=== PATIENT | male | born 2000 | race Caucasian/White ===

== ENCOUNTER 2022-03-29 12:50 | Emergency (ER) | payer OTHER, SELFPAY ==
--- NOTE | ~2022-03-29 | US_ITS ---
EXAMINATION:US venous doppler LE LT INDICATION:Calf and popliteal pain TECHNIQUE: Multiple grayscale, color flow and Doppler images of the left lower extremity deep venous systems were obtained and reviewed. COMPARISON:No prior studies for comparison. FINDINGS: The common femoral, superficial femoral and popliteal veins demonstrate normal respiratory variation, augmentation and compressibility. Color flow is also seen within the posterior tibial, pe roneal, greater saphenous and profunda veins. IMPRESSION: 1: No lower extremity deep venous thrombosis. Reviewed, dictated and finalized at location A.
--- NOTE | 2022-03-29 13:04 | ED.EXTPRO ---
HPI - Extremity Problem General Chief complaint: Extremity Problem,Nontraumatic Stated complaint: sent from for DVT rull out History of Present Illness HPI Narrative: 22-year-old male presents to the emergency room for evaluation of lower extremity pain. Patient has a known history of DVT, which she completed a 6-month course of Xarelto. Patient was diagnosed with DVT in 2019. Patient states over the last week he has been experiencing swelling and pain to his left calf and behind his left knee. Denies any known injury or trauma. Patient states that he continues to take Xarelto because he was diagnosed with factor V. Patient also states that he has started a new job where he is on his feet for at least 8 hours a day. Related Data Home Medications Medication Instructions Recorded Confirmed albuterol 90 mcg/actuation aerosol mcg inhalation 03/29/22 inhaler fluticasone propionate 110 1 puff inhalation WEEKLY 03/29/22 mcg/actuation HFA aerosol inhaler (Flovent HFA) rivaroxaban 20 mg tablet (Xarelto) 20 mg PO DAILY 03/29/22 Allergies Allergy/AdvReac Type Severity Reaction Status Date / Time No Known Allergies Allergy Verified 03/29/22 13:22 Review of Systems Review of Systems: CONSTITUTIONAL: Denies fever, chills, or sweats. EYES: Denies visual changes, redness, or discharge. ENT: Denies rhinorrhea, congestion, sore throat, or otalgia. CARDIOVASCULAR: Denies chest pain, palpitations, or edema. RESPIRATORY: Denies cough or dyspnea. GASTROINTESTINAL: Denies abdominal pain, nausea, vomiting, or diarrhea. GENITOURINARY: Denies dysuria or hematuria. SKIN: Denies rash or itching. MUSCULOSKELETAL: Reports left calf pain NEUROLOGIC: Denies headache, numbness, dizziness, or weakness. PSYCHIATRIC: Denies anxiety or depression. Exam Narrative: GENERAL: Well-appearing, well-nourished, no physical limitations, and in no acute distress. HEAD: Normocephalic, atraumatic. EYES: Conjunctivae normal, PERRLA and EOMI. CHEST: Clear to auscultation. No respiratory distress. No wheezes rales or rhonchi. No tenderness. HEART: Regular rate and rhythm. No murmur heard. Normal peripheral pulses. EXTREMITIES: Normal range of motion. No edema. No clubbing or cyanosis. LLE: No appreciated of swelling to the left calf. Tenderness to the popliteal area but no palpable mass. Negative Homans' sign. Distal pulses are present. Neurovascular intact SKIN: Warm, dry, no rash. No noted wounds NEURO: No focal deficits. Alert and oriented x3. MAEW. CN's II-XI intact bilaterally, normal gait PSYCH: Cooperative. Normal mood and affect. MDM - Extremity (Nontraumatic) Imaging Data Radiologist's impression: Impressions Venous Doppler Study 03/29/22 14:00 IMPRESSION: 1: No lower extremity deep venous thrombosis. Discharge Plan Discharge Clinical Impression: Lower extremity edema, Dermatitis Patient Disposition: Home, Self-Care Condition: Stable Instructions: Antibiotic Form, Edema (ED), Dermatitis (ED) Prescriptions: New triamcinolone acetonide 0.1 % cream 1 applic topical TID Qty: 15 0RF No Action albuterol 90 mcg/actuation Aerosol INHALATION fluticasone propionate [Flovent HFA] 110 mcg/actuation Hfa Aerosol Inhaler 1 puff INHALATION WEEKLY Xarelto 20 mg Tablet 20 mg PO DAILY Rx Instructions: must administer with evening meal Follow-up/Referrals: PHYSICIAN NOT ON STAFF,NONSTAFF [Primary Care Provider] - Time of Disposition: 14:27
[2022-03-29 14:50] VITALS: BP 125/72; PULSE 88; O2SAT 98
== END 2022-03-29 14:50 | disposition home or self-care (01) ==
PROVIDERS: Emergency Provider Nurse Practitioner Family
DX: R60.0 Localized edema (principal); L30.9 Dermatitis, unspecified; D68.51 Activated protein C resistance; Z86.718 Personal history of other venous thrombosis and embolism; Z79.01 Long term (current) use of anticoagulants
CPT/HCPCS: 93971; 99284

== ENCOUNTER 2022-06-22 18:05 | Emergency (ER) | payer OTHER, SELFPAY ==
--- NOTE | ~2022-06-22 | CT_ITS ---
EXAMINATION: CTA chest PE protocol DATE: 06/22/2022 19:04 INDICATION: CHEST PAIN ON INSPIRATION, INTERMITTENT, sob TECHNIQUE: Computed tomography angiography (CTA) of the chest was performed with 100 mL Omnipaque-350 intravenous contrast timed to evaluate the pulmonary arteries. Coronal maximum intensity projection 3D-reconstructions were created by the technologist. The dose-length product (DLP) was 782.92 mGy-cm. Automated exposure control and iterative reconstruction technique were employed. COMPARISON: None. FINDINGS: Lung parenchyma and airways: Right basilar scar/atelectasis. Pleura: Unremarkable. Thoracic inlet, axillae and chest wall: Unremarkable. Thoracic aorta: Normal. Mediastinum: Normal. Heart and pericardium: Normal. Coronary artery calcifications: . Upper abdomen: No significant finding. Bones: No acute osseous finding. Pulmonary arteries: Study quality: Adequate. No pulmonary emboli detected. IMPRESSION: No CT evidence of acute pulmonary embolus. Reviewed, dictated and finalized at location K. 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
[2022-06-22 18:11] VITALS: BP 123/70; PULSE 95; RESP 18; TEMP 36.5; O2SAT 97
--- NOTE | 2022-06-22 18:18 | ECG_ITS ---
Measurements Intervals [place] Rate: 92 P: 46 TX: 158 QRS: 56 QRSD: 98 T: 53 QT: 332 QTc: 411 Interpretive Statements SINUS RHYTHM POSSIBLE LEFT ATRIAL ENLARGEMENT INCOMPLETE RIGHT BUNDLE BRANCH BLOCK BASELINE ARTIFACT- I, II, V4 BORDERLINE ECG NO PREVIOUS ECG AVAILABLE FOR COMPARISON Electronically Signed On 06-23-2022 7:44:17 GEL [employer]ATER by Adelso Alanis D.O.
[2022-06-22 18:26] VITALS: PULSE 94
[2022-06-22 18:34] LABS: Basophils Percent Auto 0.3 % (0.2-1.2); Eosinophils Absolute Auto 0.1 K/mm3 (0-0.3); Eosinophils Percent Auto 0.9 % (0-4.4); Hematocrit 46.3 % (42.0-52.0); Hemoglobin 16.5 g/dL (14.0-18.0); Immature Granulocyte Absolute 0.04 K/mm3 (0.00-0.031); Immature Granulocyte Percent A 0.4 % (0-0.5); Lymphocytes Percent Auto 12.5 % (18.3-44.2); Mean Corpuscular HGB Conc 35.6 g/dl (32-36); Mean Corpuscular Hemoglobin 32.1 pg (26-34); Mean Corpuscular Volume 90.1 fl (80-100); Mean Platelet Volume 10.1 fl (7.4-10.4); Monocytes Absolute Auto 0.4 K/mm3 (0.1-0.6); Neutrophils Absolute Auto 7.9 K/mm3 (1.3-6.7); Neutrophils Percent Auto 81.9 % (45.5-73.1); Platelet Count Result 204 k/mm3 (150-375); Red Blood Count 5.14 M/mm3 (4.6-6.20); Red Cell Distribution Width 12.2 % (11.5-14.5); White Blood Count 9.6 K/mm3 (4.5-10.0)
[2022-06-22 18:46] LABS: INR 0.9; Prothrombin Time 11.8 Seconds (11.1-14.7)
[2022-06-22 18:51] LABS: Alanine Aminotransferase 61 U/L (6-50); Albumin Level 4.4 g/dL (3.5-5.1); Alkaline Phosphatase 69 U/L (38-126); Anion Gap 6 mmol/L (8-16); Aspartate Amino Transferase 46 U/L (17-59); Bilirubin,Total 0.5 mg/dL (0.2-1.3); Blood Urea Nitrogen 12 mg/dL (9-20); Calcium 8.6 mg/dL (8.4-10.2); Carbon Dioxide 26 mmol/L (22-30); Chloride 107 mmol/L (98-107); Estimated CRCL calculation 188 ml/min; Estimated Glomerular Filt Rate > 60; Glucose 95 mg/dL (65-110); Lipase 55 U/L (23-300); Potassium 3.9 mmol/L (3.4-5.0); Sodium 139 mmol/L (137-145)
[2022-06-22 19:03] LABS: Troponin I < 0.012 ng/mL (0.000-0.034)
[2022-06-22 19:13] LABS: Influenza A QL RT-PCR Negative (Negative); Influenza B QL RT-PCR Negative (Negative); SARS-CoV-2 RNA PCR Negative
--- NOTE | 2022-06-22 19:40 | ED.CHESTPAIN ---
HPI - Chest Pain General Chief Complaint: Chest Pain Stated Complaint: left knee pain. right sided chest pain since 2019 Time Seen by Provider: 06/22/22 18:16 History of Present Illness HPI narrative: Patient is a 22-year-old male who presents ER with concerns that he may have a pulmonary embolism. He has history of factor V Leiden and he is on Xarelto. Reports he has chronic pain behind his left knee and his left lower extremity from a DVT years ago. Today started having pain in his left upper back chest and worse with deep breath. Usually can tell when he has a muscle cramp present. No hemoptysis. No cough or dyspnea. Related Data Home Medications Medication Instructions Recorded Confirmed albuterol 90 mcg/actuation aerosol mcg inhalation 03/29/22 inhaler fluticasone propionate 110 1 puff inhalation WEEKLY 03/29/22 mcg/actuation HFA aerosol inhaler (Flovent HFA) rivaroxaban 20 mg tablet (Xarelto) 20 mg PO DAILY 03/29/22 Allergies Allergy/AdvReac Type Severity Reaction Status Date / Time No Known Allergies Allergy Verified 06/22/22 18:15 Review of Systems Review of Systems: All systems reviewed & are unremarkable except as noted in HPI and below Constitutional: Constitutional: Denies chills, Denies fatigue and Denies fever(s) ENT: Denies nasal congestion and Denies sore throat Cardiovascular: Cardiovascular: Reports chest pain, Denies rapid heart rate and Denies radiating jaw, neck or arm pain Respiratory: Respiratory: Denies cough, Denies dyspnea and Denies wheezing Musculoskeletal: Musculoskeletal: Reports back pain, Denies arthralgias, Denies joint swelling and Denies muscle cramps Exam Narrative: GENERAL: Well-appearing, well-nourished, and in no acute distress. HEAD: Normocephalic, atraumatic. EYES: PERRL and EOMI. ENT: Mucous membranes moist. CHEST: Clear to auscultation. No respiratory distress. HEART: Regular rate and rhythm. Normal peripheral pulses. ABDOMEN: Soft, nontender, nondistended. EXTREMITIES: Normal range of motion. No edema. SKIN: Warm, dry, no rash. NEURO: Alert and oriented x3. Course Course Emergency Course: Patient informed of results. Resting comfortably. Discharge home. Vital Signs Vital signs: Vital Signs Temperature 97.7 F 06/22/22 18:11 Pulse Rate 95 06/22/22 18:11 Respiratory Rate 18 06/22/22 18:11 Blood Pressure 123/70 06/22/22 18:11 Pulse Oximetry 97 06/22/22 18:11 Oxygen Delivery Room Air 06/22/22 18:11 Temperature 97.7 F 06/22/22 18:11 Pulse Rate 94 06/22/22 18:26 Respiratory Rate 18 06/22/22 18:11 Blood Pressure 123/70 06/22/22 18:11 Pulse Oximetry 97 06/22/22 18:11 Oxygen Delivery Room Air 06/22/22 18:11 MDM - Chest Pain Lab Data 06/22/22 18:29 06/22/22 18:29 Labs: Lab Results 06/22/22 06/22/22 06/22/22 Range/Units 18:29 18:29 18:29 WBC 9.6 (4.5-10.0) K/mm3 RBC 5.14 (4.6-6.20) M/mm3 Hgb 16.5 (14.0-18.0) g/dL Hct 46.3 (42.0-52.0) % MCV 90.1 (80-100) fl MCH 32.1 (26-34) pg MCHC 35.6 (32-36) g/dl RDW 12.2 (11.5-14.5) % Plt Count 204 (150-375) k/mm3 MPV 10.1 (7.4-10.4) fl Immature Gran % (Auto) 0.4 (0-0.5) % Neut % (Auto) 81.9 H (45.5-73.1) % Lymph % (Auto) 12.5 L (18.3-44.2) % [place] % (Auto) 4.0 (2.6-8.5) % Eos % (Auto) 0.9 (0-4.4) % Baso % (Auto) 0.3 (0.2-1.2) % Lymph # (Auto) 1.20 (0.9-3.2) K/mm3 [place] # (Auto) 0.4 (0.1-0.6) K/mm3 Eos # (Auto) 0.1 (0-0.3) K/mm3 Baso # (Auto) 0.0 (0.0-0.1) K/mm3 Abs Immat Gran (auto) 0.04 H (0.00-0.031) K/mm3 Absolute Neuts (auto) 7.9 H (1.3-6.7) K/mm3 Absolute Nucleated RBC 0.0 (0.0-0.012) K/mm3 Nucleated RBC % 0.0 (0.0-0.2) % PT 11.8 (11.1-14.7) Seconds INR 0.9 APTT 26.0 (22.3-36.8) SECONDS Sodium 139 (137-145) mmol/L Potassium 3.9 (3.4-5.0) mmol/L Chloride 107 (98-10
[2022-06-22 20:02] VITALS: BP 124/72; PULSE 69; RESP 16; TEMP 36.7; O2SAT 98
== END 2022-06-22 20:04 | disposition home or self-care (01) ==
PROVIDERS: Emergency Provider Emergency Medicine
DX: R07.89 Other chest pain (principal); Z20.822 Contact with and (suspected) exposure to COVID-19
CPT/HCPCS: 36415; 71275; 80053; 83690; 84484; 85025; 85610; 85730; 87636; 93005; 99284; Q9967

== ENCOUNTER 2023-05-01 18:27 | Emergency (ER) | payer OTHER, SELFPAY ==
--- NOTE | ~2023-05-01 | CT_ITS ---
EXAMINATION: CT abdomen pelvis wo con DATE: 05/01/2023 21:11 INDICATION: Right lower quadrant abdominal pain. Right flank pain. TECHNIQUE: Computed tomography (CT) of the abdomen and pelvis was performed without intravenous contr ast. Automated exposure control and iterative reconstruction technique were employed. The dose-length product was 1769.96 mGy-cm. COMPARISON: None. FINDINGS: The visualized portions of the lung bases are clear without pneumonia or pleural effusion. The heart size is normal. No pericardial effusion. There is diffuse hepatic steatosis. The gallbladde r, spleen, pancreas, adrenal glands, and kidneys are normal. There is no urolithiasis. There is fat s tranding around an epiploic appendage of sigmoid colon in the right lower quadrant, consistent with e piploic appendagitis. The appendix is normal. There are no dilated loops of bowel. There are no patho logically enlarged lymph nodes. There is no free intraperitoneal fluid. The bones are unremarkable. IMPRESSION: 1. Epiploic appendagitis of sigmoid colon in the right lower quadrant. Reviewed, dictated and finalized at location E. [employer]IATE
[2023-05-01 18:39] VITALS: BP 134/81; PULSE 97; RESP 18; TEMP 36.3; O2SAT 99
[2023-05-01 19:02] LABS: Basophils Percent Auto 0.2 % (0.2-1.2); Eosinophils Absolute Auto 0.2 K/mm3 (0-0.3); Eosinophils Percent Auto 2.1 % (0-4.4); Hematocrit 47.8 % (42.0-52.0); Hemoglobin 16.3 g/dL (14.0-18.0); Immature Granulocyte Absolute 0.04 K/mm3 (0.00-0.031); Immature Granulocyte Percent A 0.4 % (0-0.5); Lymphocytes Absolute Auto 2.64 K/mm3 (0.9-3.2); Lymphocytes Percent Auto 29.4 % (18.3-44.2); Mean Corpuscular HGB Conc 34.1 g/dl (32-36); Mean Corpuscular Hemoglobin 30.9 pg (26-34); Mean Corpuscular Volume 90.7 fl (80-100); Monocytes Percent Auto 11.5 % (2.6-8.5); Neutrophils Absolute Auto 5.1 K/mm3 (1.3-6.7); Neutrophils Percent Auto 56.4 % (45.5-73.1); Platelet Count Result 237 k/mm3 (150-375); Red Blood Count 5.27 M/mm3 (4.6-6.20); Red Cell Distribution Width 12.5 % (11.5-14.5)
[2023-05-01 19:02] LABS: Appearance Urine Clear (Clear); Bilirubin Urine Negative (Negative); Blood Urine Negative (Negative); Color Urine Yellow (Yellow); Glucose Urine UA Negative (Negative); Ketones Urine Negative (Negative); Leukocyte Esterase Ur Negative LEU/UL (Negative); Nitrate Urine Negative (Negative); Protein Urine Negative (Negative); Specific Grav Ur 1.018 (1.001-1.035); Urobilinogen Urine 0.2 mg/dL (<2.0)
[2023-05-01 19:03] LABS: Alanine Aminotransferase 44 U/L (6-50); Albumin Level 4.5 g/dL (3.5-5.1); Alkaline Phosphatase 70 U/L (38-126); Anion Gap 6 mmol/L (8-16); Aspartate Amino Transferase 29 U/L (17-59); Bilirubin,Total 0.5 mg/dL (0.2-1.3); Blood Urea Nitrogen 14 mg/dL (9-20); Calcium 9.3 mg/dL (8.4-10.2); Carbon Dioxide 30 mmol/L (22-30); Chloride 103 mmol/L (98-107); Estimated CRCL calculation 141 ml/min; Estimated Glomerular Filt Rate > 60; Glucose 97 mg/dL (65-110); Lipase 55 U/L (23-300); Sodium 139 mmol/L (137-145)
[2023-05-01 19:28] LABS: Add Urine Microscopic? NO
--- NOTE | 2023-05-01 20:56 | ED.GENADULT ---
HPI - General Adult General Chief complaint: Unspecified Stated complaint: groin pain Time Seen by Provider: 05/01/23 20:38 History of Present Illness HPI narrative: Patient is a 23-year-old gentleman who presents the emergency department with chief complaint of left lower quadrant pain. The patient reports that around midnight he started having pain in the right lower quadrant right inguinal area. Patient reports the pain is sharp reports it is worse with movement and improved with rest. Patient denies nausea vomiting denies fever denies diarrhea. Related Data Home Medications Medication Instructions Recorded Confirmed albuterol 90 mcg/actuation aerosol mcg inhalation 03/29/22 inhaler fluticasone propionate 110 1 puff inhalation WEEKLY 03/29/22 mcg/actuation HFA aerosol inhaler (Flovent HFA) rivaroxaban 20 mg tablet (Xarelto) 20 mg PO DAILY 03/29/22 Allergies Allergy/AdvReac Type Severity Reaction Status Date / Time No Known Allergies Allergy Verified 06/22/22 18:15 Review of Systems Review of Systems: A 10 system review of systems was completed on the patient and is negative except for what is stated in the HPI. Nursing and ancillary documentation was reviewed. Exam Narrative: GENERAL: Well-appearing, well-nourished, and in no acute distress. HEAD: Normocephalic, atraumatic. EYES: PERRLA and EOMI. ENT: Nares clear, no rhinorrhea or epistaxis. Mucous membranes moist. NECK: Supple. CHEST: Clear to auscultation. No respiratory distress. HEART: Regular rate and rhythm. No murmur heard. Normal peripheral pulses. ABDOMEN: Soft, tenderness to palpation in the right lower quadrant and right upper quadrant, nondistended, normal active bowel sounds. EXTREMITIES: Normal range of motion. No edema. SKIN: Warm, dry, no rash. NEURO: No focal deficits. Alert and oriented x3. PSYCH: Normal mood and affect. Course Vital Signs Vital signs: Vital Signs Temperature 36.3 C L 05/01/23 18:39 Pulse Rate 97 05/01/23 18:39 Respiratory Rate 18 05/01/23 18:39 Blood Pressure 134/81 05/01/23 18:39 Pulse Oximetry 99 05/01/23 18:39 Oxygen Delivery Room Air 05/01/23 18:39 Temperature 36.3 C L 05/01/23 18:39 Pulse Rate 97 05/01/23 18:39 Respiratory Rate 18 05/01/23 18:39 Blood Pressure 134/81 05/01/23 18:39 Pulse Oximetry 99 05/01/23 18:39 Oxygen Delivery Room Air 05/01/23 18:39 Medical Decision Making MDM Narrative Medical decision making narrative: Differential diagnosis includes ureterolithiasis, UTI, appendicitis, epiploic appendagitis, diverticulitis colitis Laboratory studies were obtained on the patient which showed normal CBC normal CMP normal lipase urinalysis showed no evidence of UTI or RBCs CT scan of the abdomen pelvis showed Epiploic appendagitis of sigmoid colon in the right lower quadrant. Vital Signs Vital Signs: Vital Signs Temperature 36.3 C L 05/01/23 18:39 Pulse Rate 97 05/01/23 18:39 Respiratory Rate 18 05/01/23 18:39 Blood Pressure 134/81 05/01/23 18:39 Pulse Oximetry 99 05/01/23 18:39 Oxygen Delivery Room Air 05/01/23 18:39 Temperature 36.3 C L 05/01/23 18:39 Pulse Rate 97 05/01/23 18:39 Respiratory Rate 18 05/01/23 18:39 Blood Pressure 134/81 05/01/23 18:39 Pulse Oximetry 99 05/01/23 18:39 Oxygen Delivery Room Air 05/01/23 18:39 Lab Data 05/01/23 18:45 05/01/23 18:45 Labs: Lab Results 05/01/23 05/01/23 Range/Units 18:45 18:53 WBC 9.0 (4.5-10.0) K/mm3 RBC 5.27 (4.6-6.20) M/mm3 Hgb 16.3 (14.0-18.0) g/dL Hct 47.8 (42.0-52.0) % MCV 90.7 (80-100) fl MCH 30.9 (26-34) pg MCHC 34.1 (32-36) g/dl RDW 12.5 (11.5-14.5) % Plt Count 237 (150-375) k/mm3 MPV 10.0 (7.4-10.4) fl Immature Gran % (Auto) 0.4 (0-0.5) % Neut % (Auto) 56.4 (45.5-73.1) % Lymph % (Auto) 29.4 (18.3-44.2) % [place] % (Auto) 1
== END 2023-05-01 21:57 | disposition home or self-care (01) ==
PROVIDERS: Emergency Medicine; Emergency Provider Emergency Medicine; PCP Nurse Practitioner Family
DX: K63.89 Other specified diseases of intestine (principal)
CPT/HCPCS: 36415; 74176; 80053; 81003; 83690; 85025; 99284

== ENCOUNTER 2024-03-28 17:17 | Emergency (ER) | payer OTHER, SELFPAY ==
--- NOTE | ~2024-03-28 | XR_ITS ---
EXAM: XR foot RT min 3V DATE: 03/28/2024 20:03 HISTORY: great toe laceration . COMPARISON: None available. FINDINGS: Normal mineralization. No fracture or dislocation. No lytic or blastic lesion. Joint space s are maintained. No erosion or periosteal change. Soft tissues within normal limits. IMPRESSION: No acute osseous finding in the right foot. Reviewed, dictated and finalized at location K.
[2024-03-28 17:30] VITALS: BP 110/63; PULSE 92; RESP 17; TEMP 36.6; O2SAT 98
--- NOTE | 2024-03-28 20:40 | ED.LOWEXIN ---
HPI - Extremity Injury (Lower) General Chief Complaint: Extremity Injury, Lower Stated Complaint: right foot injury Time Seen by Provider: 03/28/24 19:32 History of Present Illness HPI Narrative: 24-year-old male presents emergency department for a superficial laceration to his right great toe. Patient states earlier today he was walking up stairs with [employer] when he slipped and cut his great toe on the stair. He denies hitting his head, LOC or other injuries acquired. His last tetanus was in 2020. Bleeding is controlled. He is anticoagulated on Xarelto for prior VTE. Related Data Home Medications Medication Instructions Recorded Confirmed albuterol 90 mcg/actuation aerosol mcg inhalation 03/29/22 inhaler fluticasone propionate 110 1 puff inhalation WEEKLY 03/29/22 mcg/actuation HFA aerosol inhaler (Flovent HFA) rivaroxaban 20 mg tablet (Xarelto) 20 mg PO DAILY 03/29/22 Allergies Allergy/AdvReac Type Severity Reaction Status Date / Time No Known Allergies Allergy Verified 03/28/24 17:18 Review of Systems Review of Systems: All systems reviewed & are unremarkable except as noted in HPI and below Exam Narrative: GENERAL: Well-appearing, well-nourished, and in no acute distress. HEAD: Normocephalic, atraumatic. ENT: Nares clear, no rhinorrhea or epistaxis. Mucous membranes moist. NECK: Supple. CHEST: Clear to auscultation. No respiratory distress. HEART: Regular rate and rhythm. No murmur heard. Normal peripheral pulses. ABDOMEN: Soft, nontender, nondistended, normal active bowel sounds. EXTREMITIES: Normal range of motion. No edema. SKIN: Approximately 1.5 cm curvilinear superficial laceration With flap to the palmar aspect of the right great toe, bleeding is controlled. no deep structures or foreign bodies visualized. Laceration involves only the epidermis, dermal layer intact. Patient able to wiggle toe without difficulty. Cap refill less than 2. No bony tenderness. NEURO: No focal deficits. Alert and oriented x3 Course Vital Signs Vital signs: Vital Signs Temperature 97.9 F 03/28/24 17:30 Pulse Rate 92 03/28/24 17:30 Respiratory Rate 17 03/28/24 17:30 Blood Pressure 110/63 03/28/24 17:30 Pulse Oximetry 98 03/28/24 17:30 Temperature 97.9 F 03/28/24 17:30 Pulse Rate 92 03/28/24 17:30 Respiratory Rate 17 03/28/24 17:30 Blood Pressure 110/63 03/28/24 17:30 Pulse Oximetry 98 03/28/24 17:30 MDM - Extremity Injury (Lower) MDM Narrative Medical decision making narrative: 24-year-old male presents to the emergency department for a laceration to the palmar aspect of his right great toe that occurred today. See HPI for further history. Vitals are stable. Exam is significant for a 1.5 cm curvilinear laceration that involves only the epidermal layer. Bleeding is controlled. There are no deep structures or foreign bodies visualized. The urea was irrigated extensively with normal saline. Shared decision making regarding closure. Patient feels comfortable with wrapping the area given it is so superficial. Antibiotic ointment and dressing applied. I discussed dressing changes and wound care as well as close PCP follow-up. He has an appointment with his PCP this week which I encouraged him to attend. Strict ED return precautions discussed. He is agreeable to plan verbalized understanding. Discharged in stable condition. Discharge Plan Discharge Clinical Impression: Laceration Patient Disposition: Home, Self-Care Condition: Stable Instructions: Antibiotic Form, Laceration (DC) Additional Instructions: You were seen in the emergency department for laceration to her toe. Her x-rays unremarkable. We discussed closing the area was stitches or leaving it to close with a bandage. You agree to leave a closed with a bandage. Please change the dressing twice a day. change earlier if it becomes saturated. Return to the emergency depa
== END 2024-03-28 20:57 | disposition home or self-care (01) ==
PROVIDERS: Emergency Provider Physician Assistant; PCP Nurse Practitioner Family
DX: S91.111A Laceration without foreign body of right great toe without damage to nail, initial encounter (principal); Z86.718 Personal history of other venous thrombosis and embolism; Z79.01 Long term (current) use of anticoagulants; W10.9XXA Fall (on) (from) unspecified stairs and steps, initial encounter
CPT/HCPCS: 73630; 99283

== ENCOUNTER 2024-11-05 23:03 | Emergency (ER) | payer OTHER, SELFPAY ==
--- OUTSIDE RECORDS SUMMARY | 2024-11-05 23:05 | XMS_ITS | Encounter Summary ---
Author Organization [facility] Healthcare Address [address] [place] [address] Care Team Providers Care Putaway Driver Name Role Phone Natasha Shanks NP Primary Care Provider [phone] Emily Valdez MD Unavailable Encounter Details Date Type Department Care Team (Late st Contact Info) Description 10/19/2024 Results Follow-Up [facility] Medical [facility] at [address] [id number] Karie Clemons NP [address] [facility] [address] [place] [address] Social History Tobacco Use Types Packs/Day Years Used Date Smoking Tobacco: Never Smokeless Tobacco: Never PHQ-2 Answer Date Recorded PHQ-2 Total Score (If total score is 3 or more points, staff should administer the PHQ-9) 0 10/04/2024 PHQ-9 Answer Date Recorded PHQ-9 Total Score 10 09/29/2023 Sex and Gender Information Value Date Recorded Sex Assigned at Not on file Legal Sex Male 10:55 AM CDT Gender Identity Male 01/29/2023 12:40 PM CDT Sexual Orientation Straight 01/29/2023 12 :40 PM CDT documented as of this encounter Plan of Treatment Not on file documented as of this encounter Visit Diagnoses Not on filedocumented in this encounter Care Teams Putaway Driver Relationship Specialty Start Date End Date Natasha Shanks NP [address] [facility] [address] [place] [address] PCP - General Family Medicine 10/17/22 Emily Valdez MD [address] [place] [id number] Referring Physician Internal Medicine 03/13/23 documented as of this encounter
--- OUTSIDE RECORDS SUMMARY | 2024-11-05 23:05 | XMS_ITS | Encounter Summary ---
Author Organization [facility] Healthcare Address [address] [place] [address] Care Team Providers Care Pulp Grinder Feeder Name Role Phone Natasha Shanks NP Primary Care Provider [phone] Emily Valdez MD Unavailable Encounter Details Date Type Department Care Team (Late st Contact Info) Description 10/11/2024 Results Follow-Up [facility] Medical Group Primary Care at [address] [id number] Natasha Shanks NP [address] [facility] [address] [place] [address] Social History Tobacco Use Types [...] on filedocumented in this encounter Care Teams Pulp Grinder Feeder Relationship Specialty Start Date End Date Natasha Shanks NP [address] [place] [address] [address] [place] [address] PCP - General Family Medicine 10/17/22 Emily Valdez MD [address] [place] [id number] [id number] Referring Physician Internal Medicine 03/13/23 documented as of this encounter
--- OUTSIDE RECORDS SUMMARY | 2024-11-05 23:05 | XMS_ITS | Referral Summary ---
Author Organization [facility] [address] Address [address] [place] [phone] Care Team Providers Care Radiology Equipment Servicer Name Role Phone Natasha Shanks NP Primary Care Provider [phone] Emily Valdez MD Unavailable Encounters Date Type Department Care Team Description 11/04/2024 2:01 PM CDT - 11/04/2024 11:59 PM CDT Hospital Encounter [facility] [address] [place] [address] Flank pain; RUQ pain Discharge Disposition: Discharge to home or self care 11/03/[address] [address] Kushal Blas 10/19/2024 Results Follow-Up [facility] Convenient Care at [address] [phone] Karie Clemons NP 10/19/2024 2:35 PM CDT Ancillary Procedure [facility] Imaging at [address] [phone] Acute pain of right knee 10/19/2024 2:15 PM CDT Office Visit [facility] at [address] [phone] Karie Clemons NP Acute pain of right knee (Primary Dx); Nausea; Functional diarrhea 10/11/2024 Results Follow-Up [facility] Primary Care at [address] [phone] Natasha Shanks NP 10/08/2024 4:16 PM CDT - 10/08/2024 11:59 PM CDT Hospital Encounter [address] [address] Vitamin D deficiency Discharge Disposition: Discharge to home or self care 10/08/2024 11:15 AM CDT Lab [facility] Out[facility] Lab at [address] [phone] Allergic rhinitis (Primary Dx) 10/04/2024 2:00 PM CDT Office Visit [facility] Primary Care at [address] [phone] Natasha Shanks NP Flank pain (Primary Dx); RUQ pain 09/29/2024 5:15 PM CDT Office Visit [facility] Con[facility]ient Care at [address] [phone] Enriqueta Avina PA Flank pain (Primary Dx) 09/22/2024 Orders Only [facility] Primary Care at [address] [phone] Natasha Shanks NP Vitamin D deficiency (Primary Dx) 08/31/2024 Telephone [facility] Primary Care at [address] [phone] Natasha Shanks NP Test Results 08/27/2024 Results Follow-Up [facility] Primary Care at [address] [phone] Natasha Shanks NP 08/24/2024 7:46 AM TILE POWER SHEAR OPERATOR - 08/24/2024 11:59 PM TILE POWER SHEAR OPERATOR Hospital Encounter [facility] [address] [place] [address] RUQ pain Discharge Disposition: Discharge to home or self care from Last 3 Months Allergies No known active allergies Medications pyrithione zinc 2 % shampooIndication s:Tinea versicolor Applied to affected areas of dance skin, lather, leave on 5 minutes, and rinse repeat once daily for 2 weeks 240 mL 023 Active clotrimazole-beta methasone (LOTRISONE) cream 0 Refill(s), Maintenance 022 Active fluticasone propionate (FLOVENT HFA) 110 mcg/actuation inhaler Inhale 2 puffs 2 (two) times a day 1 each 3 023 Active albuterol HFA (PROVENTIL HFA,VENTOLIN HFA,PROAIR HFA) 90 mcg/actuation inhaler Inhale 2 puffs every 4 (four) hours as needed for wheezing or shortness of breath 1 each 1 023 Active mupirocin (BACTROBAN) 2 % ointment Apply topically 3 (three) times a day 22 g 024 Active Additional Information Patient not taking.Reported on 10/19/2024 rivaroxaban (XARELTO) 20 mg tablet Take 1 tablet (20 mg total) by mouth daily 90 tablet 1 024 Active ergocalciferol (VITAMIN D) 50,000 unit capsule Take 1 capsule (50,000 Units total) by mouth once a week 12 capsule 024 Active tirzepatide, weight loss, (ZEPBOUND) 7.5 mg/0.5 mL pen injectorIndicatio ns:Weight Loss Management for Obese Patient (BMI >= 30) Inject 0.5 mL (7.5 mg total) under the skin every 7 days 2 mL 3 025 Active methylPREDNISolon e (MEDROL DOSEPACK) 4 mg DosepackIndicatio ns:Right-sided low back pain without sciatica, unspecified chronicity Take 6 tabs on day 1, reduce dose by 1 daily until prescription is complete. 1 packet 025 Active Additional Information Patient not taking.Reported on 10/19/2024 cyclobenzaprine (FLEXERIL) 5 mg tablet TAKE 1 TABLET BY MOUTH NIGHTLY NEEDED FOR MUSCLE SPASMS 30 tablet 1 025 Active lidocaine (LIDODERM) 5 % Place 1 patch on the skin daily for 12 hours Remove & discard patch within 12 hours or as directed by MD. 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 Encouragement given. Order placed for nutrition as patient interested in learning new ways to adjust his diet in his living situation. Assessment & Plan (01/19/2024 9:08 AM CDT): Pt tolerating Zepbound 2.5mg. Will increase to 5mg. Has lost nearly 30 pounds and feels much better (better sleep, energy, etc.). Currently doing a lifestyle management program and low carb diet as well. Assessment & Plan (09/29/2023 9:38 AM CDT): Healthy, low carbohydrate lifestyle and exercise for 150min/week recommended Factor 5 Leiden mutation, heterozygous 9 10/17/2022 Overview (10/17/2022): Last Assessment & Plan: Following with hematology. Doing well. Assessment & Plan (01/19/2024 9:08 AM CDT): Continues on Xarelto. Sees hematology. Assessment & Plan (09/29/2023 9:36 AM CDT): Continuing Xarelto 20 mg daily. Has established with Dr Velez. Assessment & Plan (04/25/2023 10:31 AM CDT): Patient in need of milliner helper who is closer in proximity. Referral to Dr Agustin rose, continuing Xarelto, refill provided. Assessment & Plan (10/17/2022 3:37 PM CDT): Hx of DVT left leg (2019) behind the knee. Feels like it has been more swollen in the last few weeks. Intermittent pain if he is kneeling down. Denies any other red flag sx, exam unremarkable. Continues Xarelto Will get updated labs, see if we need Hematology again. Allergic rhinitis 03/24/2012 10/17/2022 Asthma 10/29/2011 10/17/2022 Assessment & Plan (09/29/2023 9:37 AM CDT): Asthma sx stable overall. Assessment & Plan (2023 2:06 PM CDT): 5 day oral steroid for exacerbation, likely r/t returning to school and around cats. Continuing daily Flovent and prn Albuterol. Assessment & Plan (10/17/2022 3:38 PM CDT): Stable, uses prn inhaler approximately 2x/month. Continues Flovent. Decreased visual acuity 10/29/2011 10/18/19 23 Immunizations Immunization Administration Dates Next Due DTaP 09/30/2005, 2,2000,07/18,2000 HPV9 09/09/2023,08/03/2019,05/26/2019 Hep A, Pediatric 11/30/2012,10/29/2011 Hep B / HiB 2000,2000 Hep B, Adolescent or Pediatric 2000 Heplisav-b (Hepatitis B) 02/13/2024,06/05/2023 Hib (PRP-T) 07/06/2001,2000 IPV 09/30/2005, 1,2000,05/19 Influenza, Quadrivalent, Lola l Culture-based MDCK, Preservative Free, Antibiotic Free, Intramuscular 06/05/2023 Influenza, Quadrivalent, Spl it, Preservative Free, Intramuscular 2023,05/01/2020,05/26/2019,05/11 Influenza, Trivalent, Cell Culture-based MDCK, Preservative Free, Antibiotic Free, Intramuscular 02/13/2024,06/05/2023 Influenza, Trivalent, Preser vative Free, Intramuscular 04/28/2010,05/15/2005 Influenza, Unspecified 06/23/2023(Deferr ed: Patient Refused),2023(Deferred: Patient Refused),06/23/2022(Deferred: Patient Refused),06/23/2022(Deferred: Patient Refused) MMR 09/30/2005,03/23/2001 Meningococcal B, OMV (Bexsero) 2023 Meningococcal Conjugate (Menveo) 12/12/2017 Meningococcal MCV4P (Menactra) 10/29/2011 Pneumococcal Conjugate 15-valent 09/09/2023 Pneumococcal Conjugate 7-Valent 07/06/2001,03/23 Pneumococcal Polysaccharide PPV23 05/26/2019 Tdap 06/04/2022,10/29/2011 Varicella 10/29/2011,03/23/2001 Social History Tobacco Use Types Packs/Day Years Used Date Smoking Tobacco: Never Smokeless Tobacco: Never Tobacco Cessation:Counseling Given: Not Answered PHQ-2 Answer Date Recorded PHQ-2 Total Score [...] Orientation Straight 01/29/2023 12 :40 PM CDT Last Filed Vital Signs Vital Sign Reading Time Taken Comments Blood Pressure 103/67 10/19/2024 2:24 PM CDT Pulse 87 10/19/2024 2:24 PM CDT Temperature 36.7 C (98.1 F) 10/19/2024 2:24 PM CDT Respiratory Rate 18 10/19/2024 2:24 PM CDT Oxygen Saturation 97% 10/19/2024 2:24 PM CDT Inhaled Oxygen Concentration - - Weight 106.8 kg (235 lb 8 oz) 10/19/2024 2:24 PM CDT Height 180.3 cm (5' 10.98 ) 10/19/2024 2:24 PM C DT Body Mass Index 32.86 10/19/2024 2:24 PM CDT Plan of Treatment Not on file Procedures Procedure Name Priority Date/Time Associated Diagnosis Comments XR KNEE RIGHT 3 VIEWS Schedule RAVEN, Read RAVEN (Appt Today, Awaiting Results) 10/19/2024 2:40 PM CDT Acute pain of right knee VITAMIN D 25 HYDROXY Routine 10/08/2024 2:31 PM CDT Vitamin D deficiency POCT URINALYSIS DIPSTICK Routine 09/29/2024 5:29 PM CDT Flank pain US RUQ Schedule Routine, Read Routine (OP Routine) 08/24/2024 8:15 AM TILE POWER SHEAR OPERATOR RUQ pain HEPATITIS C ANTIBODY Routine 09/30/2023 11:54 AM CDT Encounter for hepatitis C screening test for low risk patient from Last 3 Months or Most Recently Relevant to Health Maintenance Results * XR Knee Right 3 Vw (10/19/2024 2:40 PM CDT) Anatomical Region Laterality Modality Lower Extremities, Knee Right Digital Radiography 10/19/2024 4:03 PM CDT Narrative 10/19/2024 4:04 PM CDT EXAM DESCRIPTION: XR KNEE RIGHT 3 VIEWS REASON FOR STUDY: pain Pt complains of right knee pain for two days. No known injury. No prior surgery to the knee. TECHNIQUE: 3 radiographic view(s) of the right knee . COMPARISON: None FINDINGS: BONES/JOINTS: There is no acute fracture, malalignment or osseous abnormality. The joint spaces are normal. SOFT TISSUES: Within normal limits. IMPRESSION: No acute osseous abnormality. THIS IS AN ELECTRONICALLY VERIFIED FINAL REPORT 10/19/2024 4:04 PM - Electronically signed by Demetria Tio Kinsey M.D. FT T: Report ID: [id number] Reading Location: [id number] Procedure Note Demetria Hurtado MD - 10/19/2024 EXAM DESCRIPTION: XR KNEE RIGHT 3 VIEWS REASON FOR STUDY: pain Pt complains of right knee pain for two days. No known injury. No prior surgery to the knee. TECHNIQUE: 3 radiographic view(s) of the right knee . COMPARISON: None FINDINGS: BONES/JOINTS: There is no acute fracture, malalignment orosseous abnormality. The joint spaces are normal. SOFT TISSUES: Within normal limits. IMPRESSION: No acute osseous abnormality. THIS IS AN ELECTRONICALLY VERIFIED FINAL REPORT 10/19/2024 4:04 PM - Electronically signed by Demetria Kinsey M.D. FT T: Report ID: [id number] Reading Location: [place] [address] Karie Clemons ADVERTISING SALES EXECUTIVE IMG XR PROCEDURES Final Result * Vitamin D 25 hydroxy (10/08/2024 2:31 PM CDT) Pathologist [facility] [place] Vitamin D 25-OH 35 30 - 80 ng/mL Blood 10/08/2024 2:31 PM CDT 10/08/2024 3:54 PM CDT Natasha Shanks NP LAB BLOOD ORDERABLES Final Resul t [facility] [id number] Department of Laboratories [place], [place] [id number] * POCT urinalysis dipstick (09/29/2024 5:29 PM CDT) Pathologist [facility] [place] Color, Urine, POC Yellow Clarity, ur, POC Clear Clear Glucose, ur, POC Negative Negative MG/DL Bilirubin, ur, POC Negative Negative, Small, Moderate, Large Ketones, ur, POC Negative Negative Specific [place], POC 1.030 1.003 - 1.030 Blood, ur, POC Negative Negative pH, ur, POC 6.0 5.0 - 8.0 Protein, ur, POC Negative Negative Urobilinogen, urine, POC 0.2 0.2 - 1.0 mg/dL Nitrite, ur, POC Negative Negative Leukocytes, ur, POC Negative Negative Lot Number [id number] Urine 09/29/2024 5:29 PM CDT us Enriqueta WADSWORTH POINT OF CARE TEST ORDER GINA Final Result * US RUQ (08/24/2024 8:15 AM TILE POWER SHEAR OPERATOR) Anatomical Region Laterality Modality Abdomen N/A Ultrasound 08/26/2024 7:09 PM TILE POWER SHEAR OPERATOR Narrative 08/26/2024 7:10 PM TILE POWER SHEAR OPERATOR EXAM DESCRIPTION: US RUQ REASON FOR STUDY: RUQ pain TECHNIQUE: Ultrasound of the right upper quadrant of the abdomen was performed with grayscale and color doppler. COMPARISON: None FINDINGS: PANCREAS: Visualized portions of the pancreas are within normal limits. Portions of the pancreatic body and tail are obscured due to bowel gas. LIVER: The liver appears normal in echotexture and echogenicity. No focal lesion identified. The main portal vein is patent with antegrade flow. GALLBLADDER: The gallbladder appears unremarkable. No cholelithiasis. No gallbladder wall thickening or pericholecystic fluid. No positive sonographic Custer sign reported. BILIARY: There is no intrahepatic or extrahepatic biliary ductal dilatation. Common bile duct measures 3 mm in diameter. RIGHT KIDNEY: Normal size. Normal echogenicity. No solid mass or cyst. No hydronephrosis. Measures 11.5 cm in length. OTHER: No other significant findings. IMPRESSION: No acute abnormality. THIS IS AN ELECTRONICALLY VERIFIED FINAL REPORT 08/26/2024 7:10 PM - Electronically signed by Reynaldo Camejo M.D. BS: GIGI Report ID: [id number] Reading Location: [place] [address] Procedure Note Reynaldo Camejo MD - 08/26/2024 EXAM DESCRIPTION: US RUQ REASON FOR STUDY: RUQ pain TECHNIQUE: Ultrasound of the right upper quadrant of the abdomen wasperformed with grayscale and color doppler. COMPARISON: None FINDINGS: PANCREAS: Visualized portions of the pancreas are within normal limits. Portions of the pancreatic body and tail are obscured due to bowel gas. LIVER: The liver appears normal in echotexture and echogenicity. Nofocal lesion identified. The main portal vein is patent with antegrade flow. GALLBLADDER: The gallbladder appears unremarkable. No cholelithiasis.No gallbladder wall thickening or pericholecystic fluid. No positivesonographic Custer sign reported. BILIARY: There is no intrahepatic or extrahepatic biliary ductaldilatation. Common bile duct measures 3 mm in diameter. RIGHT KIDNEY: Normal size. Normal echogenicity. No solid mass or cyst.No hydronephrosis. Measures 11.5 cm in length. OTHER: No other significant findings. IMPRESSION: No acute abnormality. THIS IS AN ELECTRONICALLY VERIFIED FINAL REPORT 08/26/2024 7:10 PM - Electronically signed by Reynaldo Camejo M.D. BS: BS Report ID: [id number] Reading Location: [place] [address] us Natasha Shanks NP IMG US PROCEDURES Final Result * Hepatitis C antibody Blood (09/30/2023 11:54 AM CDT) Hep C Ab Nonreactive Nonreactive Comment: Interpretive Data Nonreactive: Antibodies to HCV not detected. Does NOT exclude the possibility of recent exposure to HCV. Equivocal: Equivocal for HCV antibodies. Supplemental molecular testing will be automatically performed to determine infection status in accordance with current CDC screening recommendations. Reactive: Positive for HCV antibodies. This may represent current or past HCV infection. Supplemental molecular testing will be automatically performed to determine current infection status in accordance with current CDC screening recommendations. Interpretive data was last revised on 2019. Blood 09/30/2023 11:5 4 AM CDT 09/30/2023 6:52 PM CDT us Natasha Shanks NP LAB MICROBIOLOGY - GENERAL [place] [id number] [address] Department [place] [address] from Last 3 Months or Most Recently Relevant to Health Maintenance Insurance [employer] Care Teams Radiology Equipment Servicer Relationship Specialty Start Date End Date Natasha Shanks NP [address] [facility] [address] [place] [address] PCP - General Family Medicine 10/17/22 Emily Valdez MD [address] [place] [address] Referring Physician Internal Medicine 03/13/23
--- OUTSIDE RECORDS SUMMARY | 2024-11-05 23:05 | XMS_ITS | Clinical Summary ---
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 Referral to Dr Velez placed, continuing Xarelto, refill provided. Assessment & Plan [...] Flovent. Decreased visual acuity 10/29/2011 10/18/19 23 Encounters Date Type Department Care Team Description 11/04/2024 2:01 PM CDT - 11/04/2024 11:59 PM CDT Hospital Encounter [facility] [address] [place] [address] Flank pain; RUQ pain Discharge Disposition: Discharge to home or self care 11/03/2024 Telephone [facility] [address] [place] [address] Kushal Blas 10/19/2024 2:35 PM CDT Ancillary Procedure [facility] Imaging at [address] [phone] Acute pain of right knee 10/19/2024 2:15 PM CDT Office Visit [facility] Convenient Care at [address] [phone] Karie Clemons NP Acute pain of right knee (Primary Dx); Nausea; Functional diarrhea 10/19/2024 Results Follow-Up [facility] Con[facility]ient Care at [address] [phone] Karie Clemons NP 10/11/2024 Results Follow-Up [facility] Primary Care at [address] [phone] Natasha Shanks NP 10/08/2024 4:16 PM CDT - 10/08/2024 11:59 PM CDT Hospital Encounter [address] [address] Vitamin D deficiency Discharge Disposition: Discharge to home or self care 10/08/2024 11:15 AM CDT [facility] at [address] [phone] Allergic rhinitis (Primary Dx) 10/04/2024 2:00 PM CDT Office Visit [facility] Primary Care at [address] [phone] Natasha Shanks NP Flank pain (Primary Dx); RUQ pain 09/29/2024 5:15 PM CDT Office Visit [facility] Convenient Care at [address] [phone] Enriqueta Avina PA Flank pain (Primary Dx) 09/22/2024 Orders Only [facility] Primary Care at [address] [phone] Natasha Shanks NP Vitamin D deficiency (Primary Dx) 08/31/2024 Telephone [facility] Primary Care at [address] [phone] Natasha Shanks NP Test Results 08/27/2024 Results Follow-Up [facility] Primary Care at [address] [phone] Natasha Shanks NP 08/24/2024 7:46 AM TRACTOR CRANE OPERATOR - 08/24/2024 11:59 PM TRACTOR CRANE OPERATOR Hospital Encounter [facility] [address] [place] [address] RUQ pain Discharge Disposition: Discharge to home or self care from Last 3 Months Immunizations Immunization Administration Dates Next Due DTaP [...] Polysaccharide PPV23 05/26/2019 Tdap 06/04/2022,10/29/2011 Varicella 10/29/2011,03/23/2001 Surgical History Surgery Date Site/Laterality Comments MANDIBLE SURGERY 06/23/2020 - 06/22/2021 COSMETIC SURGERY 12/05/2020 Medical History Medical History Date Comments DVT (deep venous thrombosis) (HCC) Factor 5 Leiden mutation, heterozygous Asthma 2005 Social History Tobacco Use Types Packs/Day Years [...] Orientation Straight 01/29/2023 12 :40 PM CDT Obstetrics History Last Filed Vital Signs Vital Sign Reading [...] 10/19/2024 2:24 PM CDT Plan of Treatment Health Maintenance Due Date Last Done Comments Covid-19 Vaccine (2023- 5 season) 2024 06/05/2023, 05/29/2021, 10/26/2020, Additional history exists Regular Well Visit/Exam 18-64 04/02/2025 04/02/2024, 10/17/2022 Depression Screening 10/04/2025 10/04/2024, 07/26/2024, 04/02/2024, Additional history exists DTaP/Tdap/Td Vaccine (8 - Td or Tdap) 06/04/2032 06/04/2022, 10/29/2011, 09/30/2005, Additional history exists Pneumococcal vaccine <65 (2 of 2 - PCV20 or PCV21) 2050 09/09/2023, 05/26/2019, 07/06/2001, Additional history exists Varicella Vaccines Completed 10/29/2011, 03/23/2001 HPV Vaccines Completed 09/09/2023, 07/24, 05/26/2019 Hepatitis C Screening Completed 09/30/2023 Hepatitis B Screening Completed 02/13/2024 , 06/05/2023, 2000, Additional history exists Influenza Vaccine Completed 02/13/2024, , 06/05/2023, Additional history exists Procedures Procedure Name Priority Date/Time Associated Diagnosis Comments XR KNEE RIGHT 3 VIEWS Schedule RAVEN, Read RAVEN (Appt Today, Awaiting Results) 10/19/2024 2:40 PM CDT Acute pain of right knee VITAMIN D 25 HYDROXY Routine 10/08/2024 2:31 PM CDT Vitamin D deficiency POCT URINALYSIS DIPSTICK Routine 09/29/2024 5:29 PM CDT Flank pain US RUQ Schedule Routine, Read Routine (OP Routine) 08/24/2024 8:15 AM TRACTOR CRANE OPERATOR RUQ pain HEPATITIS C ANTIBODY Routine [...] Demetria Kinsey M.D. FT T: Report ID: [id number] Reading Location: [id number] Procedure Note Demetria Hurtado MD - 10/19/2024 [...] Demetria Kinsey M.D. FT T: Report ID: [id number] Reading Location: [place] [address] Karie Clemons COMB CAPPER IMG XR PROCEDURES Final Result * Vitamin D 25 hydroxy (10/08/2024 2:31 PM CDT) Vitamin D 25-OH 35 30 - 80 ng/mL Blood 10/08/2024 2:31 PM CDT 10/08/2024 3:54 PM CDT Natasha Shanks NP LAB BLOOD ORDERABLES Final Resul t Performing Organization Address City/State/[facility] Co de Phone Number [facility] [address] [address] Department [place] [address] * POCT urinalysis dipstick (09/29/2024 5:29 PM CDT) Color, Urine, POC Yellow Clarity, ur, POC Clear Clear Glucose, ur, POC Negative Negative MG/DL Bilirubin, ur, POC Negative Negative, Small, Moderate, Large Ketones, ur, POC Negative Negative Specific [place], POC 1.030 1.003 - 1.030 Blood, ur, POC Negative Negative pH, ur, POC 6.0 5.0 - 8.0 Protein, ur, POC Negative Negative Urobilinogen, urine, POC 0.2 0.2 - 1.0 mg/dL Nitrite, ur, POC Negative Negative Leukocytes, ur, POC Negative Negative Lot Number [id number] Urine 09/29/2024 5:29 PM CDT Enriqueta WADSWORTH POINT OF CARE TEST ORDER GINA Final Result * US RUQ (08/24/2024 8:15 AM TRACTOR CRANE OPERATOR) Anatomical Region Laterality Modality Abdomen N/A Ultrasound 08/26/2024 7:09 PM TRACTOR CRANE OPERATOR Narrative 08/26/2024 7:10 PM TRACTOR CRANE OPERATOR EXAM DESCRIPTION: US RUQ REASON FOR [...] thickening or pericholecystic fluid. No positive sonographic Shannon sign reported. BILIARY: There is no intrahepatic [...] Reynaldo Camejo M.D. BS: GIGI Report ID: [id number] Reading Location: [id number] Procedure Note Reynaldo Camejo MD - 08/26/2024 [...] wall thickening or pericholecystic fluid. No positivesonographic Shannon sign reported. BILIARY: There is no intrahepatic [...] Reynaldo Camejo M.D. BS: BS Report ID: [id number] Reading Location: [place] [address] Natasha Shanks NP IMG US PROCEDURES Final [...] 4 AM CDT 09/30/2023 6:52 PM CDT Natasha Shanks NP LAB MICROBIOLOGY - GENERAL ORDER GINA Final Result [facility] [id number] [address] Department [place] [address] from Last 3 Months or Most Recently Relevant to Health Maintenance Insurance [employer] Care Teams Motor Transport Inspector Relationship Specialty Start Date End Date Natasha Shanks NP [address] [place] [address] PCP - General Family Medicine 10/17/22 Emily Valdez MD [address] [place] [address] Referring Physician Internal Medicine 03/13/23
--- OUTSIDE RECORDS SUMMARY | 2024-11-05 23:05 | XMS_ITS | Encounter Summary ---
Author Organization [facility] Healthcare Address [address] [place] [address] Care Team Providers Care Cath Lab Manager Name Role Phone Natasha Shanks NP Primary Care Provider [phone] Emily Valdez MD Unavailable Reason for Referral * MRI/CAT/PET Scan (Routine) - Closed Specialty Diagnoses / Procedures Referred By Aguilar hilario Referred To Contact Radiology Diagnoses Flank pain RUQ pain Procedures CT Abdomen Pelvis W Contrast Natasha Shanks NP [address] [place] [address] Phone: tel: fax: [address] [address] Referral ID Status Reason Start Date Expiration Date Visits Re quested Visits Authorized [id number] Closed 10/25/2024 01/23/2025 1 1 Reason for Visit * MRI/CAT/PET Scan (Routine) - Closed Specialty Diagnoses / Procedures Referred By Aguilar hilario Referred To Contact Radiology Diagnoses Flank pain RUQ pain Procedures CT Abdomen Pelvis W Contrast Natasha Shanks NP [address] [place] [address] Phone: tel: fax: [address] [address] Referral ID Status Reason Start Date Expiration Date Visits Re quested Visits Authorized [id number] Closed 10/25/2024 01/23/2025 1 1 Encounter Details Date Type Department Care Team (Latest Contact Info) Description 11/04/2024 2:01 PM CDT - 11/04/2024 11:59 PM CDT Hospital Encounter [facility] [address] [place] [phone] Flank pain; RUQ pain Discharge Disposition: Discharge to home or self care Social History Tobacco Use Types Packs/Day Years [...] PM CDT documented as of this encounter Medications at Time of Discharge albuterol HFA (PROVENTIL HFA,VENTOLIN HFA,PROAIR HFA) 90 mcg/actuation inhaler Inhale 2 puffs every 4 (four) hours as needed for wheezing or shortness of breath 1 each 1 3 clotrimazole-betame thasone (LOTRISONE) cream 0 Refill(s), Maintenance 2 cyclobenzaprine (FLEXERIL) 5 mg tablet TAKE 1 TABLET BY MOUTH NIGHTLY NEEDED FOR MUSCLE SPASMS 30 tablet 1 5 ergocalciferol (VITAMIN D) 50,000 unit capsule Take 1 capsule (50,000 Units total) by mouth once a week 12 capsule 4 famotidine (PEPCID) 40 mg tablet TAKE 1 TABLET BY MOUTH EVERY DAY 90 tablet 1 5 fluticasone propionate (FLOVENT HFA) 110 mcg/actuation inhaler Inhale 2 puffs 2 (two) times a day 1 each 3 3 lidocaine (LIDODERM) 5 % Place 1 patch on the skin daily for 12 hours Remove & discard patch within 12 hours or as directed by . 14 patch 5 methylPREDNISolone (MEDROL DOSEPACK) 4 mg DosepackIndications :Right-sided low back pain without sciatica, unspecified chronicity Take 6 tabs on day 1, reduce dose by 1 daily until prescription is complete. 1 packet 5 mupirocin (BACTROBAN) 2 % ointment Apply topically 3 (three) times a day 22 g 4 ondansetron ODT (ZOFRAN-ODT) 4 mg disintegrating tabletIndications:N ausea Take 1 tablet (4 mg total) by mouth every 6 (six) hours as needed for nausea or vomiting 10 tablet 5 pyrithione zinc 2 % shampooIndications: Tinea versicolor Applied to affected areas of dance skin, lather, leave on 5 minutes, and rinse repeat once daily for 2 weeks 240 mL 3 rivaroxaban (XARELTO) 20 mg tablet Take 1 tablet (20 mg total) by mouth daily 90 tablet 1 4 tirzepatide, weight loss, (ZEPBOUND) 7.5 mg/0.5 mL pen injectorIndications :Weight Loss Management for Obese Patient (BMI >= 30) Inject 0.5 mL (7.5 mg total) under the skin every 7 days 2 mL 3 5 documented as of this encounter Discharge Disposition Disposition Code Departure Means Destination Discharge to home or self care documented in this encounter Plan of Treatment Pending Results Name Type Priority Associated Diagnoses Date /Time CT Abdomen Pelvis W Contrast Imaging Schedule Routine, Read Routine (OP Routine) Flank pain RUQ pain 11/04/2024 3:27 PM CDT Scheduled Orders Name Type Priority Associated Diagnoses Orde r Schedule CT Abdomen Pelvis W Contrast Imaging Schedule Routine, Read Routine (OP Routine) Flank pain RUQ pain Once for 1 Occurrences starting 11/04/2024 until 11/04/2024 documented as of this encounter Visit Diagnoses Diagnosis Flank pain Abdominal pain, unspecified site RUQ pain Abdominal pain, right upper quadrant documented in this encounter Administered Medications Inactive Administered Medications - up to 3 most recent administrations Medication Order MAR Action Action Date Dose Rate Site ioversoL (OPTIRAY 350) syringe 75 mL 75 mL, intravenous, Once in imaging, contrast, Starting on Kathy 11/04/24 at 1409, For 1 dose Contrast Given 11/04/2024 3:27 PM CDT 75 mL Right Antecubital documented in this encounter Orders Medications Ordered That John ht Not Have Been Administered Count Last Ordered Date First Ordered Date ioversoL (OPTIRAY 350) syringe 75 mL 1 10/21 documented in this encounter Care Teams Cath Lab Manager Relationship Specialty Start Date End Date Natasha Shanks NP [address] [facility] [address] [place] [address] PCP - General Family Medicine 10/17/22 Emily Valdez MD [address] [place] [address] Referring Physician Internal Medicine 03/13/23 documented as of this encounter
[2024-11-05 23:30] VITALS: BP 141/74; PULSE 91; RESP 16; TEMP 36.7; O2SAT 99
--- NOTE | 2024-11-06 01:32 | PC.NURSE ---
Pt observed leaving er. Pt ambulatory with steady gait. no distress noted.
--- OUTSIDE RECORDS SUMMARY | 2024-11-06 01:46 | XMS_ITS | Encounter Summary ---
Author Organization [facility] Healthcare Address [address] [place] [address] Care Team Providers Care Ophthalmology Technician Name Role Phone Natasha Shanks NP Primary Care Provider [phone] Emily Valdez MD Unavailable Reason for Referral * MRI/CAT/PET Scan (Routine) - Closed Specialty Diagnoses / Procedures Referred By Aguilar hilario Referred To Contact Radiology Diagnoses Flank pain RUQ pain Procedures CT Abdomen Pelvis W Contrast Natasha Shanks NP [address] [place] [address] Phone: tel: fax: [address] [address] Referral ID Status Reason Start Date Expiration Date Visits Re quested Visits Authorized [id number] Closed 10/25/2024 01/23/2025 1 1 Reason for Visit * MRI/CAT/PET Scan (Routine) - Closed Specialty Diagnoses / Procedures Referred By Aguilar hilario Referred To Contact Radiology Diagnoses Flank pain RUQ pain Procedures CT Abdomen Pelvis W Contrast Natasha Shanks NP [address] [place] [address] Phone: tel: fax: [address] [phone] Referral ID Status Reason Start Date Expiration Date Visits Re quested Visits Authorized [id number] Closed 10/25/2024 01/23/2025 1 1 Encounter Details Date Type Department Care Team (Latest Contact Info) Description 11/04/2024 2:01 PM CDT - 11/04/2024 11:59 PM CDT Hospital Encounter [facility] [address] [place] [phone] Flank pain; RUQ pain Discharge Disposition: Discharge [...] 10/21 documented in this encounter Care Teams Ophthalmology Technician Relationship Specialty Start Date End Date Natasha Shanks NP [address] [facility] [address] [place] [address] PCP - General Family Medicine 10/17/22 Emily Valdez MD [address] [place] [address] Referring Physician Internal Medicine 03/13/23 documented as of this encounter
--- OUTSIDE RECORDS SUMMARY | 2024-11-06 01:46 | XMS_ITS | Referral Summary ---
Author Organization [facility] [address] Address [address] [place] [phone] Care Team Providers Care Sales Ledger Administrator Name Role Phone Natasha Shanks NP Primary Care Provider [phone] Emily Valdez MD Unavailable Encounters Date Type Department Care Team Description 11/04/2024 2:01 PM CDT - 11/04/2024 11:59 PM CDT Hospital Encounter [facility] [address] [place] [address] Flank pain; RUQ pain Discharge Disposition: Discharge to home or self care 11/03/[address] [address] Kushal Blas 10/19/2024 Results Follow-Up [facility] Medical Group Convenient Care at [address] [phone] Karie Clemons NP 10/19/2024 2:35 PM CDT Ancillary Procedure [facility] Medical Group Imaging at [address] [phone] Acute pain of right knee 10/19/2024 2:15 PM CDT Office Visit [facility] Medical Group Convenient Care at [address] [phone] Karie Clemons NP Acute pain of right knee (Primary Dx); Nausea; Functional diarrhea 10/11/2024 Results Follow-Up [facility] Medical Group Primary Care at [address] [phone] Natasha Shanks NP 10/08/2024 4:16 PM CDT - 10/08/2024 11:59 PM CDT Hospital Encounter [address] [address] Vitamin D deficiency Discharge Disposition: Discharge to home or self care 10/08/2024 11:15 AM CDT Lab [facility] Outpatient Lab at [address] [phone] Allergic rhinitis (Primary Dx) 10/04/2024 2:00 PM CDT Office Visit [facility] Primary Care at [address] [phone] Natasha Shanks NP Flank pain (Primary Dx); RUQ pain 09/29/2024 5:15 PM CDT Office Visit [facility] Convenient Care at [address] [phone] Enriqueta Avina PA Flank pain (Primary Dx) 09/22/2024 Orders Only [facility] Primary Care at [address] [phone] Natasha Shanks NP Vitamin D deficiency (Primary Dx) 08/31/2024 Telephone [facility] Primary Care at [address] [phone] Natasha Shanks NP Test Results 08/27/2024 Results Follow-Up [facility] Primary Care at [address] [phone] Natasha Shanks NP 08/24/2024 7:46 AM FISHING TOOL SUPERVISOR - 08/24/2024 11:59 PM FISHING TOOL SUPERVISOR Hospital Encounter [facility] [address] [place] [address] RUQ pain Discharge Disposition: Discharge to home [...] 10:31 AM CDT): Patient in need of passenger barge master who is closer in proximity. Referral to [...] Read Routine (OP Routine) 08/24/2024 8:15 AM FISHING TOOL SUPERVISOR RUQ pain HEPATITIS C ANTIBODY Routine 09/30/2023 [...] Tio Kinsey M.D. FT T: Report ID: [id number] Reading Location: [id number] Procedure Note Demetria Hurtado MD - 10/19/2024 [...] Demetria Kinsey M.D. FT T: Report ID: [id number] Reading Location: [place] [address] Karie Clemons 3D DESIGNER IMG XR PROCEDURES Final Result * Vitamin D 25 hydroxy (10/08/2024 2:31 PM CDT) Pathologist [facility] Vitamin D 25-OH 35 30 - 80 ng/mL Blood 10/08/2024 2:31 PM CDT 10/08/2024 3:54 PM CDT Natasha Shanks NP LAB BLOOD ORDERABLES Final Resul t AURE [id number] Kamilla Jeronimo Department of Laboratories [place], [place] [id number] * POCT urinalysis dipstick (09/29/2024 5:29 PM CDT) Pathologist [facility] Color, Urine, POC Yellow Clarity, ur, POC Clear Clear Glucose, ur, POC Negative Negative MG/DL Bilirubin, ur, POC Negative Negative, Small, Moderate, Large Ketones, ur, POC Negative Negative Specific [place], POC 1.030 1.003 - 1.030 Blood, ur, POC Negative Negative pH, ur, POC 6.0 5.0 - 8.0 Protein, ur, POC Negative Negative Urobilinogen, urine, POC 0.2 0.2 - 1.0 mg/dL Nitrite, ur, POC Negative Negative Leukocytes, ur, POC Negative Negative Lot Number [id number] Urine 09/29/2024 5:29 PM CDT us Enriqueta WADSWORTH POINT OF CARE TEST ORDER GINA Final Result * US RUQ (08/24/2024 8:15 AM FISHING TOOL SUPERVISOR) Anatomical Region Laterality Modality Abdomen N/A Ultrasound 08/26/2024 7:09 PM FISHING TOOL SUPERVISOR Narrative 08/26/2024 7:10 PM FISHING TOOL SUPERVISOR EXAM DESCRIPTION: US RUQ REASON FOR STUDY: [...] thickening or pericholecystic fluid. No positive sonographic Festus sign reported. BILIARY: There is no intrahepatic [...] Reynaldo Camejo M.D. BS: GIGI Report ID: [id number] Reading Location: [place] [address] Procedure Note Reynaldo Camejo MD - 08/26/2024 [...] wall thickening or pericholecystic fluid. No positivesonographic Festus sign reported. BILIARY: There is no intrahepatic [...] Reynaldo Camejo M.D. BS: BS Report ID: [id number] Reading Location: [place] [address] us Natasha Shanks NP IMG US PROCEDURES [...] [place] [id number] [address] Department [place] [address] from Last 3 Months or Most Recently Relevant to Health Maintenance Insurance [employer] Care Teams Sales Ledger Administrator Relationship Specialty Start Date End Date Natasha Shanks NP [address] [facility] [address] [place] [address] PCP - General Family Medicine 10/17/22 Emily Valdez MD [address] [place] [address] Referring Physician Internal Medicine 03/13/23
--- OUTSIDE RECORDS SUMMARY | 2024-11-06 01:46 | XMS_ITS | Encounter Summary ---
Author Organization [facility] Healthcare Address [address] [place] [address] Care Team Providers Care Senior Cobol Developer Name Role Phone Natasha Shanks NP Primary Care Provider [phone] Emily Valdez MD Unavailable Encounter Details Date Type Department Care Team (Late st Contact Info) Description 10/11/2024 Results Follow-Up [facility] Medical Group Primary Care at [address] [phone] Natasha Shanks NP [address] [facility] [address] [place] [address] Social History Tobacco Use Types [...] on filedocumented in this encounter Care Teams Senior Cobol Developer Relationship Specialty Start Date End Date Natasha Shanks NP [address] [place] [address] [address] [place] [address] PCP - General Family Medicine 10/17/22 Emily Valdez MD [address] [place] [id number] Referring Physician Internal Medicine 03/13/23 documented as of this encounter
--- OUTSIDE RECORDS SUMMARY | 2024-11-06 01:46 | XMS_ITS | Clinical Summary ---
Author Organization [place] [address] Address [address] [place] [address] Care Team Providers Care Radiology Specialist Name Role Phone Natasha Shanks NP Primary Care Provider [phone] Emily Valdez MD Unavailable Allergies No known [...] 10:31 AM CDT): Patient in need of clinical laboratory manager who is closer in proximity. Referral to [...] - 11/04/2024 11:59 PM CDT Hospital Encounter [facility] [address] [place] [address] Flank pain; RUQ pain Discharge Disposition: Discharge to home or self care 11/03/2024 Telephone [facility] [address] [place] [address] Kushal Blas 10/19/2024 2:35 PM CDT Ancillary Procedure [facility] Medical Group Imaging at [address] [phone] Acute pain of right knee 10/19/2024 2:15 PM CDT Office Visit [facility] Medical Group Convenient Care at [address] [phone] Karie Clemons NP Acute pain of right knee (Primary Dx); Nausea; Functional diarrhea 10/19/2024 Results Follow-Up [facility] Medical Group Convenient Care at [address] [phone] Karie Clemons NP 10/11/2024 Results Follow-Up [facility] Medical Group Primary Care at [address] [phone] Natasha Shanks NP 10/08/2024 4:16 PM CDT - 10/08/2024 11:59 PM CDT Hospital Encounter [address] [address] Vitamin D deficiency Discharge Disposition: Discharge to home or self care 10/08/2024 11:15 AM CDT Lab [facility] Outpatient Lab at [address] [phone] Allergic rhinitis (Primary Dx) 10/04/2024 2:00 PM CDT Office Visit [facility] Primary Care at [address] [phone] Natasha Shanks NP Flank pain (Primary Dx); RUQ pain 09/29/2024 5:15 PM CDT Office Visit [facility] Convenient Care at [address] [phone] Enriqueta Avina PA Flank pain (Primary Dx) 09/22/2024 Orders Only [facility] Primary Care at [address] [phone] Natasha Shanks NP Vitamin D deficiency (Primary Dx) 08/31/2024 Telephone [facility] Primary Care at [address] [phone] Natasha Shanks NP Test Results 08/27/2024 Results Follow-Up [facility] Primary Care at [address] [phone] Natasha Shanks NP 08/24/2024 7:46 AM LAND ACQUISITION SPECIALIST - 08/24/2024 11:59 PM LAND ACQUISITION SPECIALIST Hospital Encounter [facility] [address] [place] [address] RUQ pain Discharge Disposition: Discharge to home [...] Read Routine (OP Routine) 08/24/2024 8:15 AM LAND ACQUISITION SPECIALIST RUQ pain HEPATITIS C ANTIBODY Routine 09/30/2023 [...] Demetria Kinsey M.D. FT T: Report ID: [id number] Reading Location: [id number] Procedure Note Demetria Hurtado MD - 10/19/2024 [...] Demetria Kinsey M.D. FT T: Report ID: [id number] Reading Location: [place] [address] Karie Clemons FLOOR COVERER IMG XR PROCEDURES Final Result * Vitamin D 25 hydroxy (10/08/2024 2:31 PM CDT) Vitamin D 25-OH 35 30 - 80 ng/mL Blood 10/08/2024 2:31 PM CDT 10/08/2024 3:54 PM CDT Natasha Shanks NP LAB BLOOD ORDERABLES Final Resul t Performing Organization Address City/State/[facility] Co de Phone Number [facility] [address] Kamilla Jeronimo Department [place] [address] * POCT urinalysis dipstick (09/29/2024 5:29 PM CDT) Color, Urine, POC Yellow Clarity, ur, POC Clear Clear Glucose, ur, POC Negative Negative MG/DL Bilirubin, ur, POC Negative Negative, Small, Moderate, Large Ketones, ur, POC Negative Negative Specific [place], POC 1.030 1.003 - 1.030 Blood, ur, POC Negative Negative pH, ur, POC 6.0 5.0 - 8.0 Protein, ur, POC Negative Negative Urobilinogen, urine, POC 0.2 0.2 - 1.0 mg/dL Nitrite, ur, POC Negative Negative Leukocytes, ur, POC Negative Negative Lot Number [id number] Urine 09/29/2024 5:29 PM CDT Enriqueta WADSWORTH POINT OF CARE TEST ORDER GINA Final Result * US RUQ (08/24/2024 8:15 AM LAND ACQUISITION SPECIALIST) Anatomical Region Laterality Modality Abdomen N/A Ultrasound 08/26/2024 7:09 PM LAND ACQUISITION SPECIALIST Narrative 08/26/2024 7:10 PM LAND ACQUISITION SPECIALIST EXAM DESCRIPTION: US RUQ REASON FOR STUDY: [...] thickening or pericholecystic fluid. No positive sonographic Holladay sign reported. BILIARY: There is no intrahepatic [...] Reynaldo Camejo M.D. BS: GIGI Report ID: [id number] Reading Location: [id number] Procedure Note Reynaldo Camejo MD - 08/26/2024 [...] wall thickening or pericholecystic fluid. No positivesonographic Holladay sign reported. BILIARY: There is no intrahepatic [...] Reynaldo Camejo M.D. BS: BS Report ID: [id number] Reading Location: [place] [address] Natasha Shanks NP IMG US PROCEDURES Final [...] - GENERAL ORDER GINA Final Result [place] [id number] [address] Jeronimo Department [place] [address] from Last 3 Months or Most Recently Relevant to Health Maintenance Insurance [employer] Care Teams Radiology Specialist Relationship Specialty Start Date End Date Natasha Shanks NP [address] [place] [address] PCP - General Family Medicine 10/17/22 Emily Valdez MD [address] [place] [address] Referring Physician Internal Medicine 03/13/23
--- OUTSIDE RECORDS SUMMARY | 2024-11-06 01:46 | XMS_ITS | Encounter Summary ---
Author Organization [facility] Healthcare Address [address] [place] [address] Care Team Providers Care Bagging Salvager Name Role Phone Natasha Shanks NP Primary Care Provider [phone] Emily Valdez MD Unavailable Encounter Details Date Type Department Care Team (Late st Contact Info) Description 10/19/2024 Results Follow-Up [facility] Medical Group Convenient Care at [address] [phone] Karie Clemons NP [address] [facility] [address] [place] [address] Social History Tobacco Use Types [...] on filedocumented in this encounter Care Teams Bagging Salvager Relationship Specialty Start Date End Date Natasha Shanks NP [address] [facility] [address] [place] [address] PCP - General Family Medicine 10/17/22 Emily Valdez MD [address] [place] [address] Referring Physician Internal Medicine 03/13/23 documented as of this encounter
== END 2024-11-06 01:58 | disposition left against medical advice (07) ==
PROVIDERS: PCP Nurse Practitioner Family
DX: R51.9 Headache, unspecified (principal)
CPT/HCPCS: 99199

== ENCOUNTER 2025-03-12 12:16 | Emergency (ER) | payer OTHER, SELFPAY ==
--- NOTE | ~2025-03-12 | CT_ITS ---
James Nelson EXAMINATION: CT abdomen pelvis w con COMPARISON: None HISTORY: LEFT UPPER QUADRANT PAIN TECHNIQUE: Axial images were obtained through the abdomen, pelvis post administration of IV contrast. Oral contrast was also administered. Coronal reconstruction images were obtained from the axial views. CT scan performed using dose optimization techniques including the following automated exposure control; adjustment of mA and/or kV; use of iterative reconstruction technique. Automatic exposure control was used to reduce radiation dose. Permanent radiation dose record is archived to PACS. FINDINGS: CT abdomen: LUNG BASES: Small right basilar infiltrate. LIVER: The main portal vein is patent. No intrahepatic biliary duct dilatation. SPLEEN: Unremarkable. KIDNEYS: Right Kidney: Unremarkable. No calculi. No hydronephrosis. Left Kidney: Unremarkable. No calculi. No hydronephrosis ADRENAL GLANDS: Unremarkable. PANCREAS: Unremarkable. GALLBLADDER/BILIARY: Unremarkable. No biliary dilatation. STOMACH AND ESOPHAGUS: Visualized stomach and esophagus within normal limits. BOWEL/MESENTERY: There is thickening noted of the first part of the duodenum. Moderate fecal content, no colitis or diverticulitis. Appendix normal. Mesentery normal. No dilated small bowel loops. There are thickened loops of distal small bowel noted. Some small bowel loops in the upper limits of normal largest measuring 2.9 cm. ADENOPATHY/RETROPERITONEUM: No lymphadenopathy. AORTA/VASCULATURE: Normal caliber aorta. FREE FLUID OR FREE AIR: No free fluid.. CT pelvis: SOLID ORGANS/REPRODUCTIVE: Unremarkable. BLADDER: The bladder is distended. OSSEOUS STRUCTURES: No acute osseous abnormality.No suspicious lesions. OVERLYING SOFT TISSUES: Small fat-containing umbilical hernia. IMPRESSION: Probable enteritis. Findings are likely infectious. Follow-up is suggested to assess resolution Reviewed, dictated and finalized at location A. IMPRESSION: Probable enteritis. Findings are likely infectious. [facility]
--- NOTE | ~2025-03-12 | XR_ITS ---
EXAMINATION: XR chest 1V portable COMPARISON: No comparisons available. HISTORY: LEFT UPPER QUADRANT PAIN FINDINGS: The lungs are clear, no effusion. No pneumothorax. Heart is normal size. Mediastinal and hilar contours are within normal limits. Bony thorax no acute abnormality. Miscellaneous: None Impression: No acute cardiopulmonary abnormality. Reviewed, dictated and finalized at location A. Impression: No acute cardiopulmonary abnormality.
--- OUTSIDE RECORDS SUMMARY | 2025-03-12 12:18 | XMS_ITS | Encounter Summary ---
Author Organization [facility] Address [address] [place] [address] Phone Care Team Providers Care Gift Packer Name Role Phone Natasha Shanks NP Primary Care Provider [phone] Emily Valdez MD Unavailable Encounter Details Date Type Department Care Team (Late st Contact Info) Description 03/02/2025 Results Follow-Up [facility] Dermatology [address] [facility] [address] [place] [phone] O'Brien, Adriana Todd MD [address] [place] [address] [address] [place] [id number] Surgical pathology Social History Tobacco Use Types Packs/Day Years [...] as of this encounter Plan of Treatment Upcoming Encounters Date Type Department Care Team (Latest Contact Info) Description 03/12/2025 2:00 PM CDT Office Visit [facility] Medical Group Convenient Care at [address] [phone] Karie Clemons NP [address] [facility] [address] [place] [address] Lightheadedness (Primary Dx); Dizziness; Gait instability; Slow rate of speech documented as of this encounter Visit Diagnoses Not on filedocumented in this encounter Care Teams Gift Packer Relationship Specialty Start Date End Date Natasha Shanks NP [address] [place] [address] PCP - General Family Medicine 10/17/22 Emily Valdez MD [address] [place] [address] Referring Physician Internal Medicine 03/13/23 documented as of this encounter
--- OUTSIDE RECORDS SUMMARY | 2025-03-12 12:18 | XMS_ITS | Clinical Summary ---
Author Organization [facility] [address] [place] Address [address] [place] [address] Care Team Providers Care Manufacturing Cost Estimator Name Role Phone Natasha Shanks NP Primary Care Provider [phone] Emily Valdez MD Unavailable Allergies No known active allergies Medications pyrithione zinc 2 % shampooIndications :Tinea versicolor Applied to affected areas of dance skin, lather, leave on 5 minutes, and rinse repeat once daily for 2 weeks 240 mL 02/04/20 23 Active Additional Information Patient not taking.Reported on 03/12/2025 clotrimazole-betam ethasone (LOTRISONE) cream 0 Refill(s), Maintenance 07/28/19 22 Active fluticasone propionate (FLOVENT HFA) 110 mcg/actuation inhaler Inhale 2 puffs 2 (two) times a day 1 each 3 03/13/20 23 Active albuterol HFA (PROVENTIL HFA,VENTOLIN HFA,PROAIR HFA) 90 mcg/actuation inhaler Inhale 2 puffs every 4 (four) hours as needed for wheezing or shortness of breath 1 each 1 06/05/20 23 Active ergocalciferol (VITAMIN D) 50,000 unit capsule Take 1 capsule (50,000 Units total) by mouth once a week 12 capsule 10/01/19 24 Active Additional Information Patient not taking.Reported on 01/21/2025 methylPREDNISolone (MEDROL DOSEPACK) 4 mg DosepackIndication s:Right-sided low back pain without sciatica, unspecified chronicity Take 6 tabs on day 1, reduce dose by 1 daily until prescription is complete. 1 packet 07/13/19 Active Additional Information Patient not taking.Reported on 01/21/2025 lidocaine (LIDODERM) 5 % Place 1 patch on the skin daily for 12 hours Remove & discard patch within 12 hours or as directed by MD. 14 patch 09/30/19 Active Additional Information Patient not taking.Reported on 01/21/2025 famotidine (PEPCID) 40 mg tablet TAKE 1 TABLET BY MOUTH EVERY DAY 90 tablet 1 11/02/19 Active Additional Information Patient not taking.Reported on 01/21/2025 Xarelto 20 mg tablet TAKE 1 TABLET BY MOUTH EVERY DAY 90 tablet 1 12/07/19 Active lidocaine viscous (XYLOCAINE) 2 % solutionIndication s:Sore throat Apply 10 mL to the mouth or throat every 6 (six) hours as needed (sore throat) May mix with 30 ml of Mylanta 100 mL 12/07/19 Active Additional Information Patient not taking.Reported on 01/21/2025 mupirocin (BACTROBAN) 2 % ointmentIndication s:Ear cysts Apply topically 3 (three) times a day 22 g 12/13/19 Active Additional Information Patient not taking.Reported on 03/12/2025 ondansetron ODT (ZOFRAN-ODT) 4 mg disintegrating tabletIndications: Nausea and vomiting, unspecified vomiting type Take 1 tablet (4 mg total) by mouth every 8 (eight) hours as needed for nausea or vomiting 10 tablet 01/05/20 Active Additional Information Patient not taking.Reported on 01/21/2025 tirzepatide, weight loss, (ZEPBOUND) 7.5 mg/0.5 mL pen injectorIndication s:Weight Loss Management for Obese Patient (BMI >= 30) Inject 0.5 mL (7.5 mg total) under the skin every 7 days 2 mL 3 01/06/20 Active cyclobenzaprine (FLEXERIL) 5 mg tabletIndications: Right-sided abdominal pain of unknown cause Take 1 tablet (5 mg total) by mouth 2 (two) times a day as needed for muscle spasms for up to 7 days 15 tablet 01/22/20 Active Active Problems Problem Noted Date Diagnosed Date RUQ pain 11/23/2024 Assessment & Plan (11/23/2024 9:03 AM CDT): Given the improvement in his symptoms with Flexeril and topical lidocaine I favor that this is musculoskeletal in nature. Especially since his symptoms have improved since July. It does not seem like he has tried an anti-inflammatory before. Given his past success with what sounds to be a similar situation in the lower abdomen we have recommended trying some kind of anti-inflammatory and ice to the area. If no relief over the next 3-4 weeks then we can start working things up more with regards to his gallbladder by ordering a HIDA scan. Also referral to GI for an upper endoscopy to ensure no gastric pathology such as peptic ulcer disease or gastritis could also be warranted. He is in understanding of the plan. If anything persist he will give us a call. 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 Referral to [...] Encounters Date Type Department Care Team Description 03/12/2025 2:00 PM CDT Office Visit [facility] at [address] [address] Karie Clemons, JESSA Lightheadedness (Primary Dx); Dizziness; Gait instability; Slow rate of speech 03/02/2025 Results Follow-Up [facility] Medicine Dermatology [address] [place] [address] [address] [place] [address] Adriana Hensley MD Surgical pathology 02/28/2025 Orders Only [facility] Pathology Outreach [address] [place] [address] Adriana Hensley MD Neoplasm of uncertain behavior of skin 02/25/2025 2:00 PM CDT Office Visit [facility] Dermatology [address] [facility] [address] [place] [address] Adriana Hensley MD Follicular cyst of the skin and subcutaneous tissue, unspecified (Primary Dx); Neoplasm of uncertain behavior of skin 01/25/2025 9:00 AM CDT Office Visit [facility] Dermatology [address] [place] [address] Urvashi Okeefe MD PhD Epidermal cyst (Primary Dx) 01/21/2025 6:15 PM CDT Office Visit [facility] at [address] [address] Karie Clemons NP Right-sided abdominal pain of unknown cause (Primary Dx) 01/04/2025 11:15 AM CDT Office Visit [facility] at [address] [address] Maged Montoya NP Nausea and vomiting, unspecified vomiting type (Primary Dx) 12/19/2024 Results Follow-Up [facility] at [address] [address] Catrachita Melgoza NP Aerobic and anaerobic culture and gram stain Abscess Ear, right 12/12/2024 4:45 PM CDT - 12/12/2024 11:59 PM CDT Hospital Encounter [facility] [address] [place] [address] Ear cysts Discharge Disposition: Discharge to home or self care 12/12/2024 4:45 PM CDT Office Visit [facility] at [address] [address] Karie Clemons NP Ear cysts (Primary Dx) from Last 3 Months Immunizations Immunization Administration Dates Next Due COVID-19 mRNA (EPIOMED THERAPEUTICS) 0.3 m L (10 mcg) vaccine (5-11 years) 06/01/2024 DTaP 09/30/2005, 2,2000,07/18,2000 HPV9 09/09/2023,08/03/2019,05/26/2019 Hep A, Pediatric 11/30/2012,10/29/2011 Hep B / HiB 2000,2000 Hep B, Adolescent or Pediatric 2000 Heplisav-b (Hepatitis B) 02/13/2024,06/05/2023 Hib (PRP-T) 07/06/2001,2000 IPV 09/30/2005, 1,2000,05/19 Influenza, Quadrivalent, Lola l Culture-based MDCK, Preservative Free, Antibiotic Free, Intramuscular 06/05/2023 Influenza, Quadrivalent, Spl it, Preservative Free, Intramuscular 2023,05/01/2020,05/26/2019,05/11 Influenza, Trivalent, Cell Culture-based MDCK, Preservative Free, Antibiotic Free, Intramuscular 02/25/2025,02/13/2024,06/05/2023 Influenza, Trivalent, Preser vative Free, Intramuscular 04/28/2010,05/15/2005 [...] History Date Comments DVT (deep venous thrombosis) Factor 5 Leiden mutation, heterozygous Asthma 2005 Factor V Leiden Social History Tobacco Use Types Packs/Day Years [...] Sign Reading Time Taken Comments Blood Pressure 107/73 03/12/2025 11:34 AM CDT Pulse 102 03/12/2025 11:34 AM CDT Temperature 36.8 C (98.3 F) 03/12/2025 11:21 AM CDT Respiratory Rate 16 03/12/2025 11:3 4 AM CDT Oxygen Saturation 96% 03/12/2025 11: 34 AM CDT Inhaled Oxygen Concentration - - Weight 111.2 kg (245 lb 3.2 oz) 025 11:34 AM CDT Height 180.3 cm (5' 10.98) 03/12/2025 11:34 AM CDT Body Mass Index 34.21 03/12/2025 11:34 AM CDT Plan of Treatment Upcoming Encounters Date Type Department Care Team (Latest Contact Info) Description 03/12/2025 2:00 PM CDT Office Visit [facility] at [address] [address] Karie Clemons NP [address] [address] [address] [place] [address] Lightheadedness (Primary Dx); Dizziness; Gait instability; Slow rate of speech Health Maintenance Due Date Last Done Comments Regular Well Visit/Exam 18-64 04/02/2025 04/02/2024, 10/17/2022 [...] 02/13/2024 , 06/05/2023, 2000, Additional history exists Covid-19 Vaccine Completed 02/25/2025, 03/2024, 06/05/2023, Additional history exists Influenza Vaccine Completed 02/25/2025, , 06/05/2023, Additional history exists Procedures Procedure Name Priority Date/Time Associated Diagnosis Comments POCT GLUCOSE Routine 03/12/2025 11:48 AM CDT Lightheadedness SURGICAL PATHOLOGY Routine 02/25/2025 12 :00 AM CDT Neoplasm of uncertain behavior of skin POC INFLUENZA A/B, COVID-19 ANTIGEN Routine 01/04/2025 11:30 AM CDT Nausea and vomiting, unspecified vomiting type INCISION AND DRAINAGE Routine 12/12/2024 4:45 PM CDT Ear cysts AEROBIC AND ANAEROBIC CULTURE AND GRAM STAIN Routine 12/12/2024 4:44 PM CDT Ear cysts HEPATITIS C ANTIBODY Routine 09/30/2023 11:54 AM CDT Encounter for hepatitis C screening test for low risk patient from Last 3 Months or Most Recently Relevant to Health Maintenance Results * POCT glucose (03/12/2025 11:48 AM CDT) Glucose Blood, POC 87 Normal Fasting 70 - 100, Random <200 mg/dL Blood 03/12/2025 11:4 8 AM CDT Karie Clemons NP POINT OF CARE TEST ORDERABLES Final Result * Surgical pathology (02/25/2025 12:00 AM CDT) Tissue (Skin, excision) 02/25/2025 02/28/2025 7:46 AM CDT Narrative [facility] - 03/02/2025 2:52 PM CDT EPIC results best viewed via link to PDF [facility] Dermatopathology [place] [id number], [address], [place] [address] [email or web address] Note to Patients: This report may contain a detailed description of human tissue sent by a health care provider to the laboratory for pathologic evaluation. The content of this report is essential for diagnosis and may provide important critical findings. This information may be unfamiliar to patients to review without a medical professional present. It is advised that the patient review this report in the presence of a health care provider who can answer questions and explain the details. FINAL REPORT Patient Information: PATIENT NAME: SHAHLA RAMSEY SEX: M : 2000 (Age: 24) Specimen Information: COLLECTED: 02/25/2025 RECEIVED: 02/28/2025 REPORTED: 03/02/2025 Submitting Physician Information: [facility] ([facility] [place] [address], [address] [place] [address], DERMATOPATHOLOGY REPORT RESULTS DIAGNOSIS: SKIN, RIGHT EARLOBE, EXCISION: FOLLICULAR CYST, INFUNDIBULAR TYPE, RUPTURED ag/isr By this signature, I attest that the above diagnosis is based upon my personal examination of the slides(and/or other material indicated in the diagnosis). Samerea Reed M.D. Report Electronically Reviewed and Signed Out By Sameera Reed M.D. 03/02/2025 14:52:52 CLINICAL INFORMATION R/O CYST SPECIMEN DATA MICROSCOPIC DESCRIPTION: There is a cyst lined by infundibular-type epithelium and filled with orthokeratotic cells which is surrounded by a dense mixed inflammatory cell infiltrate that contains numerous neutrophils and histiocytes, many of which are multinucleated. (L72.0) GROSS DESCRIPTION: Received in a formalin-containing bottle is a completely excised cystic structure measuring 1.1 by 0.6 by 0.5 cm. The specimen is serially sectioned and the cystic structure is found to be filled with yellow, remnants of clear serous fluid, and semi-solid material. The specimen is submitted entirely in a single cassette. Due to shrinkage, measurements may be different than those at time of procedure. polo/anc ICD-9 A; ZSD.657 Clerical Data A; 52827 The characteristics of special, immunohistochemical, and immunofluorescence stains and in-situ hybridization tests performed by the [facility] were deemed acceptable in ongoing supervisor vendor quality measures and in compliance with regulations drawn from the Clinical Laboratory Improvement Act ws8326 (CLIA '88). Control reactions for all stains performed were deemed adequate and appropriate by a pathologist prior to evaluation of patient tissue. Some diagnoses were rendered with the assistance of laboratory-developed tests utilizing analyte-specific reagents; the performance characteristic of these tests were determined by [facility] and are not cleared or approved by the [place] Food an Drug administration. Laboratory developed test may only be performed in a facility that is certified by the [facility] as a high-complexity laboratory under CLIA '88. These tests are used for clinical purposes and are not investigational. Adriana Hensley MD LAB PATHOLOGY ORDERABLE S Final Result [facility] [address] [place] [id number] * POC Influenza A/B, COVID-19 antigen (01/04/2025 11:30 AM CDT) Influenza A Ag, POC Negative Negative [facility] Influenza B Ag, POC Negative Negative [facility] COVID-19 Ag POC Presumptive Negative Presumptive Negative, Invalid [facility] Nasal 01/04/2025 11:3 0 AM CDT Maged Montoya NP POINT OF CARE TEST ORDERABLES F inal Result [facility] [address] * Incision and Drainage (12/12/2024 4:45 PM CDT) Narrative Karie Clemons NP - 12/12/2024 4:45 PM CDT Karie Clemons NP 12/12/2024 5:04 PM Incision and Drainage Performed by: Karie Clemons NP Authorized by: Karie Clemons NP Consent Given by: Patient Verbal consent obtained: Yes Type: Cyst Body area: Head Location details: Right external ear Topical anesthetic: Co-phenylcaine spray Needle gauge: 18 G Incision type: Single straight Complexity: Simple Drainage: Purulent Drainage amount: Moderate Wound treatment: Wound left open Patient tolerance: Patient tolerated the procedure well with no immediate complications Karie Clemons SUSTAINABLE AGRICULTURE FACULTY IN CLINIC/BEDSIDE ORDERABLES F inal Result * (ABNORMAL) Aerobic and anaerobic culture and gram stain Abscess Ear, right (12/12/2024 4:44 PM CDT) Direct Specimen Exam Stain: No polymorphonuclear leukocytes seen. Rare Gram Positive Cocci Comment:Testing performed by : [facility], [address] [place] [address], [place]., [address] Report Final Report: Rare Staphylococcus aureus Methicillin susceptible (MSSA) by penicillin binding protein 2a (PBP2a) testing. Moderate Mixed skin microorganisms. (.) AURE Comment:Testing performed by : [facility], [address] [place] [address], [place] [address] Organism STAPHYLOCOCCUS AUREUS AURE Organism MIXED SKIN MICROORGANISMS. AURE Abscess (Ear, right) 12/12/2024 4:44 PM CDT 12/13/2024 2:12 AM CDT Narrative AURE MULLER - 12/19/2024 2:51 PM CDT Specimen received on an ESwab. Testing performed by [facility] Microbiology Laboratory ([phone]) Specimens submitted from normally sterile body sites will have all bacterial morphotypes identified. Specimens that contain grossly mixed tomasz and/or are from body sites that are not normally sterile will be examined for Staphylococcus aureus, Pseudomonas aeruginosa, beta-hemolytic strep, vancomycin-resistant Enterococcus, Bacteroides, Parabacteroides, Clostridium perfringens and fungus. If any of these are isolated, the organism will be reported. Current interpretive data was last revised on 2019. Organism Antibiotic Method Susceptibility Staphylococcus aureus Vancomycin INTERPRETATION Susceptible Staphylococcus aureus Trimethoprim with Sulfamethoxazole INTERPRETATION Susceptible Staphylococcus aureus Linezolid INTERPRETATION Susceptible Staphylococcus aureus Doxycycline INTERPRETATION Susceptible Staphylococcus aureus Clindamycin INTERPRETATION Susceptible Staphylococcus aureus Erythromycin INTERPRETATION Susceptible Staphylococcus aureus Oxacillin INTERPRETATION Susceptible Staphylococcus aureus Cefazolin INTERPRETATION Susceptible Staphylococcus aureus Ceftriaxone INTERPRETATION Susceptible Karie Clemons NP LAB MICROBIOLOGY - GENERAL ORD ERABLES Final Result Performing Organization Address City/[facility] Co de Phone Number [facility] [address] [place] [address] * Hepatitis C antibody Blood (09/30/2023 11:54 [...] MICROBIOLOGY - GENERAL ORDER GINA Final Result Performing Organization Address City/[facility]/ZIP Co de Phone Number [facility] [address] [place] [address] from Last 3 Months or Most Recently Relevant to Health Maintenance Insurance Care Teams Manufacturing Cost Estimator Relationship Specialty Start Date End Date Natasha Shanks NP [address] [facility] [address] [place] [address] PCP - General Family Medicine 10/17/22 Emily Valdez MD [address] [place], [place] [address] Referring Physician Internal Medicine 03/13/23
[2025-03-12 12:23] VITALS: BP 111/66; PULSE 84; RESP 19; TEMP 36.4; O2SAT 97
--- OUTSIDE RECORDS SUMMARY | 2025-03-12 14:00 | XMS_ITS | Encounter Summary ---
Author Organization [facility] Healthcare Address [address] [place] [address] Care Team Providers Care Journeyman Millwright Name Role Phone Natasha Shanks NP Primary Care Provider [phone] Emily Valdez MD Unavailable Reason for Visit * Reason Comments Fatigue Started last night, not able to sleep, dry heaving, feels nauseous, feels fuzzy, stubbling when he walks, dizzy, Encounter Details Date Type Department Care Team (Latest Contact Info) Description 03/12/2025 2:00 PM CDT Office Visit [facility] at [place] [address] [place] [address] Karie Clemons NP [address] [place] [address] [address] [place] [address] Lightheadedness (Primary Dx); Dizziness; Gait instability; Slow rate of speech Social History Tobacco Use Types Packs/Day Years [...] PM CDT documented as of this encounter Last Filed Vital Signs Vital Sign Reading [...] Mass Index 34.21 03/12/2025 11:34 AM CDT documented in this encounter Plan of Treatment Not on file documented as of this encounter Procedures Procedure Name Priority Date/Time Associated Diagnosis Comments POCT GLUCOSE Routine 03/12/2025 11:48 AM CDT Lightheadedness documented in this encounter Results * POCT glucose (03/12/2025 11:48 AM CDT) Glucose Blood, POC 87 Normal Fasting 70 - 100, Random <200 mg/dL Blood 03/12/2025 11:4 8 AM CDT Karie Clemons NP POINT OF CARE TEST ORDERABLES Final Result documented in this encounter Visit Diagnoses Diagnosis Lightheadedness- Primary Dizziness and giddiness Dizziness Dizziness and giddiness Gait instability Abnormality of gait Slow rate of speech Other speech disturbance documented in this encounter Care Teams Journeyman Millwright Relationship Specialty Start Date End Date Natasha Shanks NP [address] [place] [address] PCP - General Family Medicine 10/17/22 Emily Valdez MD [address] [place] [address] Referring Physician Internal Medicine 03/13/23 documented as of this encounter
--- OUTSIDE RECORDS SUMMARY | 2025-03-12 14:00 | XMS_ITS | Encounter Summary ---
Author Organization [facility] Healthcare Address [address] [place] [address] Care Team Providers Care Full Stack Java Developer Name Role Phone Natasha hSanks NP Primary Care Provider [phone] Emily Valdez MD Unavailable Reason for Visit * Reason Comments Fatigue Started last night, not able to sleep, dry heaving, feels nauseous, feels fuzzy, stubbling when he walks, dizzy, Encounter Details Date Type Department Care Team (Latest Contact Info) Description 03/12/2025 2:00 PM CDT Office Visit [facility] at [place] [address] [place] [address] Kaire Clemons NP [address] [place] [address] [address] [place] [address] Lightheadedness (Primary Dx); Dizziness; Gait [...] disturbance documented in this encounter Care Teams Full Stack Java Developer Relationship Specialty Start Date End Date Natasha Shanks NP [address] [place] [address] PCP - General Family Medicine 10/17/22 Emily Valdez MD [address] [place] [address] Referring Physician Internal Medicine 03/13/23 documented as of this encounter
[2025-03-12 15:44] VITALS: BP 100/68; PULSE 80; RESP 18; O2SAT 96
--- NOTE | 2025-03-12 16:09 | ED.NAVMDI ---
HPI - Nausea/Vomiting/Diarrhea General Chief complaint: Nausea/Vomiting/Diarrhea Stated complaint: n/v, foggy Time Seen by Provider: 03/12/25 16:09 Source: patient and EMS Mode of arrival: EMS History of Present Illness HPI Narrative: 24 YEARS OLD COMPLAINS OF WEAKNESS, TIREDNESS, THE NOT RESPONDING AND REACTING TO THE TRAFFIC WHILE DRIVING THIS MORNING. PATIENT REPORTS ELEVATED T TO SLEEP 2 DAYS AGO BECAUSE OF TOO MUCH STRESS LATELY DUE. YESTERDAY PATIENT COULD NOT SLEEP BECAUSE BEEN HAVING LEFT UPPER QUADRANT PAIN IS CONSTANT DULL ACHING, NO RADIATION THE ASSOCIATED WITH NAUSEA AND DRY HEAVES. BY PATIENT DENIES ANY FEVER, CHILLS, VOMITING, DIARRHEA, CONSTIPATION OR URINARY SYMPTOMS PATIENT DENIES SICK CONTACT CURRENTLY PATIENT MAIN COMPLAINT IS LEFT LEG PAIN WHICH IS CHRONIC SECONDARY TO THE 5TH FOR YEARS HAS BEEN ON XARELTO SINCE. CURRENTLY PATIENT TAKEN WEIGHT LOSS MEDICATIONS SINCE DECEMBER 2023. Related Data Home Medications ?Medication ?Instructions ?Recorded ?Confirmed ?Last Taken ?Type albuterol 90 mcg/actuation aerosol mcg inhalation 03/29/22 Unknown History inhaler fluticasone propionate 110 1 puff inhalation WEEKLY 03/29/22 Unknown History mcg/actuation HFA aerosol inhaler (Flovent HFA) rivaroxaban 20 mg tablet (Xarelto) 20 mg PO DAILY 03/29/22 Unknown History Allergies Allergy/AdvReac Type Severity Reaction Status Date / Time No Known Allergies Allergy Verified 03/12/25 12:21 Review of Systems Review of Systems: All systems reviewed & are unremarkable except as noted in HPI and below Exam Narrative: GENERAL APPEARANCE: WELL-DEVELOPED, WELL-NOURISHED SKIN: NORMAL COLOR HEAD: NORMOCEPHALIC, NONTRAUMATIC EYES: CLEAR CONJUNCTIVA ENT: OROPHARYNX NORMAL, EARS NORMAL, NOSE NORMAL NECK: SUPPLE, NONTENDER CHEST AND RESPIRATORY: AIRWAY PATENT, NO RESPIRATORY DISTRESS, NO ACCESSORY MUSCLE USE HEART: REGULAR RATE/RHYTHM ABDOMEN: SOFT, LEFT UPPER QUADRANT TENDERNESS, NO BRUISES, NO SWELLING OR RASH, NO ORGANOMEGALY, QUIET BOWEL SOUNDS VASCULAR: NORMAL PERIPHERAL PULSES, NORMAL CAPILLARY REFILL. MUSCULOSKELETAL: NORMAL RANGE OF MOTION, NONTENDER BACK NEUROLOGIC: ALERT AND ORIENTED ?3, ASBESTOS SURVEYOR IS NORMAL TESTED, NO GROSS MOTOR DEFICIT Course Vital Signs Vital signs: Vital Signs Temperature 36.4 C 03/12/25 12:23 Pulse Rate 84 03/12/25 12:23 Respiratory Rate 19 03/12/25 12:23 Blood Pressure 111/66 03/12/25 12:23 Pulse Oximetry 97 03/12/25 12:23 Oxygen Delivery Room Air 03/12/25 12:23 Temperature 36.4 C 03/12/25 12:23 Pulse Rate 80 03/12/25 17:09 Respiratory Rate 11 L 03/12/25 17:09 Blood Pressure 108/72 03/12/25 17:09 Pulse Oximetry 97 03/12/25 17:09 Oxygen Delivery Room Air 03/12/25 17:01 MDM - Nausea/Vomiting/Diarrhea MDM Narrative Medical decision making narrative: PATIENT PRESENTS WITH LEFT LOWER QUADRANT PAIN ASSOCIATED WITH NAUSEA AND DRY HEAVES VITAL SIGNS ARE STABLE PHYSICAL EXAMINATION SHOWING TENDERNESS LEFT UPPER QUADRANT OTHERWISE WITHIN NORMAL LIMIT DIFFERENTIAL DIAGNOSIS INCLUDE COLITIS, DIVERTICULITIS, CONSTIPATION, URINARY TRACT INFECTION, ANXIETY LIKE SYMPTOMS, MUSCULOSKELETAL BLOOD WORKUP TODAY INCLUDES CBC, CMP, LIPASE, AND COAGS SHOWED INSIGNIFICANT ABNORMALITY PATIENT TESTED NEGATIVE FOR COVID FLU AND RSV CT ABDOMEN AND PELVIS WITH IV CONTRAST SHOWED PROBABLE ENTERITIS/INFECTIOUS DIAGNOSIS ANXIETY LIKE SYMPTOM/STRESS, ABDOMINAL PAIN, POSSIBLE ENTERITIS DISCHARGED ON AUGMENTIN AND ZOFRAN, OF WORK FOR THE NEXT 2 DAYS Differential Diagnosis Differential diagnosis: Likely other ( ABOVE) Lab Data 03/12/25 17:13 03/12/25 17:13 Labs: Lab Results 03/12/25 Range/Units 17:13 WBC 7.3 (4.5-10.0) K/mm3 RBC 5.11 (4.6-6.20) M/mm3 Hgb 15.7 (14.0-18.0) g/dL Hct 46.1 (42.0-52.0) % MCV 90.2 (80-100) fl MCH 30.7 (26-34) pg MCHC 34.1 (32-36) g/dl RDW 12.6 (11.5-14.5) % Plt Count 221 (150-375) k/mm3 MPV 9.9 (7.4-10.4) fl Immature Gran % (Auto) 0.3 (0-0.5) % Neut % (Auto) 54.0 (45.5-73.1) % Lymph % (Auto) 32.2 (18.3-44.2) % [place] % (Auto) 11.3 H (2.6-8.5) % Eos % (Auto) 1.9 (0-4.4) % Baso % (Auto) 0.3 (0.2-1.2) % Lymph # (Auto) 2.36 (0.9-3.2) K/mm3 [place] # (Auto) 0.8 H (0.1-0.6) K/mm3 Eos # (Auto) 0.1 (0-0.3) K/mm3 Baso # (Auto) 0.0 (0.0-0.1) K/mm3 Abs Immat Gran (auto) 0.02 (0.00-0.031) K/mm3 Absolute Neuts (auto) 4.0 (1.3-6.7) K/mm3 Absolute Nucleated RBC 0.000 (0.0-0.012) K/mm3 Nucleated RBC % 0.0 (0.0-0.2) % PT 15.3 H (11.1-14.7) Seconds INR 1.2 APTT 29.7 (22.3-36.8) Seconds Sodium 140 (137-145) mmol/L Potassium 3.8 (3.4-5.0) mmol/L Chloride 105 (98-107) mmol/L Carbon Dioxide 28 (22-30) mmol/L Anion Gap 7 (4-12) mmol/L BUN 14 (9-20) mg/dL Creatinine 0.98 (0.7-1.3) mg/dL Estim Creat Clear Calc 129 ml/min Estimated GFR > 60 (59 - ) Glucose 90 (65-110) mg/dL Calcium 9.1 (8.4-10.2) mg/dL Total Bilirubin 0.7 (0.2-1.3) mg/dL AST 22 (17-59) U/L ALT 14 (6-50) U/L Alkaline Phosphatase 62 (38-126) U/L Total Protein 7.3 (6.3-8.2) g/dL Albumin 4.3 (3.5-5.1) g/dL Lipase 62 (23-300) U/L Influenza A (RT-PCR) Negative (Negative) Influenza B (RT-PCR) Negative (Negative) RSV (RT-PCR) Negative (Negative) SARS-CoV-2 RNA (RT-PCR) Negative (Negative) Imaging Data Radiologist's impression: Impressions Chest X-Ray 03/12/25 18:02 Impression: No acute cardiopulmonary abnormality. Abdomen/Pelvis CT 03/12/25 18:31 IMPRESSION: Probable enteritis. Findings are likely infectious. Follow-up is suggested to assess resolution Critical Care Time Critical Care Time Critical Care Time: No Discharge Plan Discharge Clinical Impression: Stress, Enteritis Patient Disposition: Home Condition: Stable Instructions: Stress (ED), Abdominal Pain (ED) Additional Instructions: RETURN IF SYMPTOMS ARE WORSENING , CALL YOUR FAMILY PHYSICIAN FOR APPOINTMENT, TAKE TYLENOL NEEDED FOR ACHES AND PAIN, CONTINUE HOME MEDICATIONS. Patient Language: Greenlandic Prescriptions: New amoxicillin-pot clavulanate [Augmentin] 500-125 mg tablet 1 tablet PO Q8H Qty: 21 0RF ondansetron 4 mg tablet,disintegrating 4 mg PO Q4H 0 Days Qty: 10 0RF Rx Instructions: give 1st dose 30min before emetogenic chemo No Action albuterol 90 mcg/actuation Aerosol INHALATION fluticasone propionate [Flovent HFA] 110 mcg/actuation Hfa Aerosol Inhaler 1 puff INHALATION WEEKLY Xarelto 20 mg Tablet 20 mg PO DAILY Rx Instructions: must administer with evening meal triamcinolone acetonide 0.1 % cream 1 applic topical TID Qty: 15 0RF Follow-up/Referrals: Shanks,Natasha Ragland APRN [Primary Care Provider, Unknown] Stand Alone Forms: Work/School Release IP
--- OUTSIDE RECORDS SUMMARY | 2025-03-12 16:28 | XMS_ITS | Encounter Summary ---
Author Organization [facility] Address [address] [place] [address] Phone Care Team Providers Care Business Operations Director Name Role Phone Natasha Shanks NP Primary Care Provider [phone] Emily Valdez MD Unavailable Encounter Details Date Type Department Care Team (Late st Contact Info) Description 03/02/2025 Results Follow-Up [facility] Medicine Dermatology [address] [place] [address] [address] [place] [address] [place], Adriana Todd MD [address] [place] [address] [address] [place] [id number] Surgical pathology Social History Tobacco Use Types [...] on filedocumented in this encounter Care Teams Business Operations Director Relationship Specialty Start Date End Date Natasha Shanks NP [address] [facility] [address] [place] [address] PCP - General Family Medicine 10/17/22 Emily Valdez MD [address] [place] [id number] Referring Physician Internal Medicine 03/13/23 documented as of this encounter
--- OUTSIDE RECORDS SUMMARY | 2025-03-12 16:29 | XMS_ITS | Clinical Summary ---
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 Referral to [...] Description 03/12/2025 2:00 PM CDT Office Visit [facility] at [address] [address] Karie Clemons, JESSA Lightheadedness (Primary Dx); Dizziness; Gait instability; Slow rate of speech 03/02/2025 Results Follow-Up [facility] Medicine Dermatology [address] [place] [address] [address] [place] [address] Adriana Hensley MD Surgical pathology 02/28/2025 Orders Only [facility] Pathology Outreach [address] [place] [address] Adriana Hensley MD Neoplasm of uncertain behavior of skin 02/25/2025 2:00 PM CDT Office Visit [facility] Dermatology [address] [facility] [address] [place] [address] Adriana Hensley MD Follicular cyst of the skin and subcutaneous tissue, unspecified (Primary Dx); Neoplasm of uncertain behavior of skin 01/25/2025 9:00 AM CDT Office Visit [facility] Dermatology [address] [place] [address] Urvashi Okeefe MD PhD Epidermal cyst (Primary Dx) 01/21/2025 6:15 PM CDT Office Visit [facility] at [address] [address] Karie Clemons NP Right-sided abdominal pain of unknown cause (Primary Dx) 01/04/2025 11:15 AM CDT Office Visit [facility] at [address] [address] Maged Montoya NP Nausea and vomiting, unspecified vomiting type (Primary Dx) 12/19/2024 Results Follow-Up [facility] [address] [address] Catrachita Melgoza NP Aerobic and anaerobic culture and gram stain Abscess Ear, right 12/12/2024 4:45 PM CDT - 12/12/2024 11:59 PM CDT Hospital Encounter [facility] [address] [place] [address] Ear cysts Discharge Disposition: Discharge to home or self care 12/12/2024 4:45 PM CDT Office Visit [facility] at [address] [address] Karie Clemons NP Ear cysts (Primary Dx) from Last 3 Months Immunizations Immunization Administration Dates Next Due COVID-19 mRNA (Azimuth) 0.3 m L (10 mcg) vaccine (5-11 [...] 03/12/2025 11:34 AM CDT Plan of Treatment Health Maintenance Due [...] (Skin, excision) 02/25/2025 02/28/2025 7:46 AM CDT [facility] - 03/02/2025 2:52 PM CDT EPIC results best viewed via link to PDF [facility] Dermatopathology [place] [address], [address], [place] [address] [email or web address] Note to Patients: This report may [...] RECEIVED: 02/28/2025 REPORTED: 03/02/2025 Submitting Physician Information: Obie Hensley M.D. Dermatology ([facility]), [address], [address] [place] [address], DERMATOPATHOLOGY REPORT RESULTS DIAGNOSIS: SKIN, RIGHT EARLOBE, EXCISION: FOLLICULAR CYST, INFUNDIBULAR TYPE, RUPTURED ag/isr By this signature, I attest that the above diagnosis is based upon my personal examination of the slides(and/or other material indicated in the diagnosis). Sameera Reed M.D. Report Electronically Reviewed and Signed [...] polo/anc ICD-9 A; ZSD.657 Clerical Data A; 55942 The characteristics of special, immunohistochemical, and immunofluorescence stains and in-situ hybridization tests performed by the [facility] Dermatopathology Center were deemed acceptable in ongoing quality control manager measures and in compliance with regulations drawn from the Clinical Laboratory Improvement Act xc8420 (CLIA '88). Control reactions for all stains performed were deemed adequate and appropriate by a pathologist prior to evaluation of patient tissue. Some diagnoses were rendered with the assistance of laboratory-developed tests utilizing analyte-specific reagents; the performance characteristic of these tests were determined by [facility] and are not cleared or approved by the [place] Food an Drug administration. Laboratory developed test may only be performed in a facility that is certified by the [facility] as a high-complexity laboratory under CLIA '88. These tests are used for clinical purposes and are not investigational. Adriana Hensley MD LAB PATHOLOGY ORDERABLE S Final Result [facility]OP[facility]OLOGY CENTER [address] [place] [id number] * POC Influenza A/B, COVID-19 antigen (01/04/2025 11:30 AM CDT) Influenza A Ag, POC Negative Negative [facility] Influenza B Ag, POC Negative Negative [facility] COVID-19 Ag POC Presumptive Negative Presumptive Negative, Invalid [facility] Nasal 01/04/2025 11:3 0 AM CDT Maged Montoya NP POINT OF CARE TEST ORDERABLES F inal Result Performing Organization Address City/[facility]/ZIP Co de Phone Number [facility] [address] [place] [address] * Incision and Drainage (12/12/2024 4:45 PM [...] the procedure well with no immediate complications us Karie Clemons NP IN CLINIC/BEDSIDE ORDERABLES F inal Result * (ABNORMAL) Aerobic and anaerobic culture and gram stain Abscess Ear, right (12/12/2024 4:44 PM CDT) Direct Specimen Exam Stain: No polymorphonuclear leukocytes seen. Rare Gram Positive Cocci Comment:Testing performed by : [facility], [address] [place] [address]., [id number] Report Final Report: Rare Staphylococcus aureus Methicillin susceptible (MSSA) by penicillin binding protein 2a (PBP2a) testing. Moderate Mixed skin microorganisms. (.) AURE Comment:Testing performed by : [facility], [address] [place] [address]., [id number] Organism STAPHYLOCOCCUS AUREUS [facility] Organism MIXED SKIN MICROORGANISMS. [facility] Abscess (Ear, right) 12/12/2024 4:44 PM CDT 12/13/2024 2:12 AM CDT Narrative [facility] - 12/19/2024 2:51 PM CDT Specimen received on an ESwab. Testing performed by [facility] Microbiology Laboratory ([phone]) Specimens submitted from normally sterile body sites [...] ORD ERABLES Final Result Performing Organization Address [facility] de Phone Number AURE [address] [address] Department [employer] [place], [place] [phone] * Hepatitis C antibody Blood (09/30/2023 11:54 [...] ORDER GINA Final Result Performing Organization Address [facility] de Phone Number AURE MULLER [address] [address] [place] [address] from Last 3 Months or Most Recently Relevant to Health Maintenance [facility] Care Teams Carbon Electrodes Supervisor Relationship Specialty Start Date End Date Natasha Shanks NP [address] [facility] [address] [place], [place] [id number] PCP - General Family Medicine 10/17/22 Emily Valdez MD [address] [place], [place] [address] Referring Physician Internal Medicine 03/13/23
[2025-03-12 17:01] VITALS: PULSE 82; RESP 14; O2SAT 98
[2025-03-12 17:09] VITALS: BP 108/72; PULSE 80; RESP 11; O2SAT 97
[2025-03-12] MEDS: ONDANSETRON INJ 4 MG/2 ML VIAL IV PUSH (17:10)
[2025-03-12] MEDS: SODIUM CHLORIDE 0.9% IV 1,000 ML 999 ML IV CONT (17:11)
[2025-03-12 17:20] LABS: Hematocrit 46.1 % (42.0-52.0); Hemoglobin 15.7 g/dL (14.0-18.0); Immature Granulocyte Percent A 0.3 % (0-0.5); Lymphocytes Absolute Auto 2.36 K/mm3 (0.9-3.2); Mean Corpuscular HGB Conc 34.1 g/dl (32-36); Mean Corpuscular Hemoglobin 30.7 pg (26-34); Mean Corpuscular Volume 90.2 fl (80-100); Nucleated Red Blood Cells Absolute Auto 0.000 K/mm3 (0.0-0.012); Nucleated Red Blood Cells Perc 0.0 % (0.0-0.2); Platelet Count Result 221 k/mm3 (150-375); Red Blood Count 5.11 M/mm3 (4.6-6.20); White Blood Count 7.3 K/mm3 (4.5-10.0)
[2025-03-12 17:34] LABS: INR 1.2; Prothrombin Time 15.3 Seconds (11.1-14.7)
[2025-03-12 17:35] LABS: Partial Thromboplastin Time 29.7 Seconds (22.3-36.8)
[2025-03-12 17:38] LABS: Alanine Aminotransferase 14 U/L (6-50); Albumin Level 4.3 g/dL (3.5-5.1); Alkaline Phosphatase 62 U/L (38-126); Anion Gap 7 mmol/L (4-12); Aspartate Amino Transferase 22 U/L (17-59); Bilirubin,Total 0.7 mg/dL (0.2-1.3); Blood Urea Nitrogen 14 mg/dL (9-20); Calcium 9.1 mg/dL (8.4-10.2); Carbon Dioxide 28 mmol/L (22-30); Chloride 105 mmol/L (98-107); Estimated CRCL calculation 129 ml/min; Estimated Glomerular Filt Rate > 60; Glucose 90 mg/dL (65-110); Lipase 62 U/L (23-300); Potassium 3.8 mmol/L (3.4-5.0); Sodium 140 mmol/L (137-145); Total Protein 7.3 g/dL (6.3-8.2)
[2025-03-12 17:58] LABS: Influenza A QL RT-PCR Negative (Negative); Influenza B QL RT-PCR Negative (Negative); RSV RNA, RT-PCR Negative (Negative); SARS-CoV-2 RNA PCR Negative (Negative)
[2025-03-12 20:09] VITALS: BP 110/76; PULSE 80; RESP 18; TEMP 36.8; O2SAT 99
== END 2025-03-12 20:11 | disposition home or self-care (01) ==
PROVIDERS: Emergency Provider Emergency Medicine; PCP Nurse Practitioner Family
DX: K52.9 Noninfective gastroenteritis and colitis, unspecified (principal); F43.9 Reaction to severe stress, unspecified; Z20.822 Contact with and (suspected) exposure to COVID-19; Z86.718 Personal history of other venous thrombosis and embolism; Z79.01 Long term (current) use of anticoagulants
CPT/HCPCS: 36415; 71045; 74177; 80053; 83690; 85025; 85610; 85730; 87637; 96361; 96374; 99284; J2405; J7030; Q9967